=== PATIENT | female | born 1995 | race Caucasian/White ===

== ENCOUNTER 2016-08-29 22:37 | Outpatient (CLI) | payer MEDICAID ==
[~2016-08-29] VITALS: Ht 172.7 cm; Wt 125.7 kg
[~2016-08-29 22:37] MED LIST: NPH10OT RIGHT EAR
[2016-08-29 23:47] VITALS: BP 123/59; PULSE 88; RESP 18
[2016-08-30] MEDS ORDERED: AL HYDROX/MG HYDROX/SIMETH 30 ML CUP PO ONE (00:30)
[2016-08-30 00:39] LABS: ADD SCAN DIFF NO
[2016-08-30 00:41] LABS: BASOPHILS % 0.2 % (0.0-2.0); EOSINOPHILS % 0.3 % (0.0-7.0); HEMATOCRIT 32.4 % (37.0-47.0); LYMPHOCYTES # 1.1 10^3/ul (0.8-2.9); LYMPHOCYTES % 11.3 % (18.0-55.0); MEAN CORPUSCULAR HEMOGLOBIN 30.6 pg (29.0-33.0); MEAN PLATELET VOLUME 9.9 fl (7.4-10.4); MONOCYTE # 0.7 10^3/ul (0.3-0.9); MONOCYTES % 7.2 % (0.0-13.0); NEUTROPHIL # 7.9 10^3/ul (1.6-7.5); NEUTROPHILS % 80.4 % (30.0-74.0); PLATELET COUNT 211 10^3/UL (140-415); RED CELL DISTRIBUTION WIDTH 13.9 % (11.5-14.5); WHITE BLOOD COUNT 9.8 10^3/ul (4.8-10.8)
[2016-08-30 01:03] LABS: ALBUMIN 3.2 g/dl (3.3-4.9)
[2016-08-30 01:04] LABS: POTASSIUM 3.9 mmol/L (3.5-5.1)
[2016-08-30 01:05] LABS: ADD UMIC NO; URINE BILIRUBIN (Dip) NEGATIVE (NEGATIVE); URINE BLOOD (Dip) NEGATIVE (NEGATIVE); URINE COLOR YELLOW (YELLOW); URINE GLUCOSE (Dip) NEGATIVE (NEGATIVE); URINE KETONES (Dip) 40 (NEGATIVE); URINE LEUKOCYTE ESTERASE (Dip) NEGATIVE (NEGATIVE); URINE NITRITE (Dip) NEGATIVE (NEGATIVE); URINE TOTAL PROTEIN (Dip) NEGATIVE (NEGATIVE); URINE UROBILINOGEN (Dip) 0.2 E.U./dL (0.1-1.0)
[2016-08-30 01:06] LABS: BILIRUBIN,INDIRECT 0.2 mg/dl (0-1.1); BILIRUBIN,TOTAL 0.2 mg/dl (0.2-1.3); CREATININE 0.58 mg/dl (0.44-1.00)
[2016-08-30 01:07] LABS: ALBUMIN/GLOBULIN RATIO 0.96; CALCIUM 8.5 mg/dl (8.4-10.2); TOTAL PROTEIN 6.5 g/dl (6.1-8.1)
--- NOTE | 2016-08-30 01:23 | RADRPT ---
PROCEDURE: Limited OB ultrasound CLINICAL INDICATION: labor. TECHNIQUE: Sonographic evaluation to assess the cervical length was performed. Transabdominal and transvaginal imaging of the uterus was performed. COMPARISON: None. FINDINGS: The cervix is closed, measuring 4.3 cm in length. IMPRESSION: 1. Closed cervix measuring 4.3 cm. RPTAT: HTAR .Joesph Chowdhury MD, Date Time Electronically viewed and signed by .Joepsh Chowdhury MD, on 08/30/2016 01:23 .R/
--- NOTE | 2016-08-30 01:56 | TRIAGE ---
OB Triage Datetime Report Generated by CPN: 08/30/2016 01:56 Datetime: 08/30/2016 01:29 Stage of : OB Triage Labor Evaluation Frequency: 0 Monitor Mode: External Resting Tone [place]: Relaxed Datetime: 08/30/2016 01:19 Labor Evaluation Frequency: 0 Monitor Mode: External Pattern: Normal: <= 5 Contractions in 10 Minutes Resting Tone [place]: Relaxed Datetime: 08/30/2016 01:00 Stage of : OB Triage Datetime: 08/30/2016 00:15 Pain Assessment Pain Scale: 5 Pain Presence: Constant Pain Type: Dull Pain Location: Right Flank Datetime: 08/30/2016 00:02 Heart Rate FHR Baseline Rate: 145 Monitor Mode: External US Datetime: 08/29/2016 23:45 Stage of : OB Triage Monitor Mode: External Resting Tone [place]: Relaxed Monitor Mode: External US Comments: FHR 145 Datetime: 08/29/2016 23:25 Vaginal Exam Membrane Status: Intact Datetime: 08/29/2016 23:15 Time of Arrival: 08/29/2016 22:36 EGA: 25.1 Arrived By: Ambulatory Arrived From: Home Chief Complaint: c/o diarrhea x 2days aand emesis x 3 since 1900 today Movement: Present Contractions: Occasional Rupture of Membranes: Denies Vaginal Bleeding: None Vaginal Discharge: Denies Recent Sexual Intercouse: Denies Abdominal Trauma: Not Applicable Patient Complaints: Cramping; Nausea; Vomiting; Other Time Provider Notified: 08/29/2016 23:45 Provider Notified: Dr Albert Initial Plan: EFM, UA,CBC,CMP,CVL Datetime: 08/29/2016 22:54 Maternal Assessment Level of Consciousness: Fully Conscious DTR's/Clonus: DTRs 1+; No Clonus Headache: Denies Blurred Vision: No Nausea/Vomiting: Present RUQ Epigastric Pain: Present Facial Edema: None Labor Evaluation Frequency: placed Monitor Mode: External Resting Tone [place]: Relaxed Monitor Mode: External US Comments: FHR 140. Baby audibly active and difficult to monitor d/t GA and maternal obesity Pain Assessment Pain Scale: 3 Pain Presence: Intermittent Pain Type: Cramping Pain Location: Abdomen
--- NOTE | 2016-08-30 11:10 | PN ---
Date/Time of Note Date/Time of Note DATE: 08/30/16 TIME: 10:53 OB Subjective Subjective Subjective 25 Y.O primigravida came in with c/o nausea and vomitin g an dpelvic cramping pain which is intermittent level is 5/10 according to patient she had diarrhea few times 2days prior to this visit which is getting better and and started having nausea and vomiting denies any other subjective symptoms OB Objective Objective Objective EFM difficult to detect uterine contraction cervical length 4.3 all lab including wbc 9800 ELECTROLYTES WNL u/a neg CVA ? tender urine culture was sent patient comfortably sleeping after oral hydration OB Assessment/Plan Other Assessment: IUP 25W PELVIC PAIN RESOLVED Other plan: routine instructions given with increase intake of fluid discharge home, will be f/u in ob clinic MAXWELL MCCRAY MD Aug 30, 2016 11:05
== END 2016-08-30 01:55 | disposition home or self-care (01) ==
LOC: OBT 22:37 → L-D 22:38 → OBT 08-30 01:55
PROVIDERS: ATTEND Obstetrics & Gynecology
DX: O21.2 Late vomiting of pregnancy (principal); O26.892 Other specified pregnancy related conditions, second trimester; R10.9 Unspecified abdominal pain; Z3A.25 25 weeks gestation of pregnancy
CPT/HCPCS: 36415; 76817; 80053; 81003; 85025; Z7500; Z7610; G0463

== ENCOUNTER 2016-11-03 13:40 | Inpatient (IN) | payer MEDICAID ==
[~2016-11-03] VITALS: Ht 172.7 cm; Wt 128.0 kg
[2016-11-03 14:01] VITALS: Ht 172.7 cm; Wt 128.0 kg
[2016-11-03 14:03] VITALS: BP 106/58; PULSE 98; RESP 18
[2016-11-03 15:28] LABS: ADD UMIC YES; URINE BILIRUBIN (Dip) NEGATIVE (NEGATIVE); URINE BLOOD (Dip) NEGATIVE (NEGATIVE); URINE COLOR LT. YELLOW (YELLOW); URINE GLUCOSE (Dip) NEGATIVE (NEGATIVE); URINE KETONES (Dip) NEGATIVE (NEGATIVE); URINE LEUKOCYTE ESTERASE (Dip) 2+ (NEGATIVE); URINE NITRITE (Dip) NEGATIVE (NEGATIVE); URINE TOTAL PROTEIN (Dip) NEGATIVE (NEGATIVE); URINE UROBILINOGEN (Dip) 1.0 E.U./dL (0.1-1.0)
[2016-11-03 15:34] LABS: BACTERIA,URINE MODERATE
--- NOTE | 2016-11-03 17:01 | RADRPT ---
PROCEDURE: US OB. CLINICAL INDICATION: Leaking fluid TECHNIQUE: Transabdominal views of the pelvis are available for review. COMPARISON: None. FINDINGS: There is a single intrauterine gestation in a vertex position. The heart rate is present at 129 bpm. The placenta is posterior. There is no evidence of placenta previa or a placental abruption. The TANI measures 16.3 cm. RPTAT: AA IMPRESSION: Normal TANI. Cephalic presentation. Physician Genie Date Time Electronically viewed and signed by Physician Genie on 11/03/2016 17:01 /
[2016-11-03] MEDS ORDERED: ACETAMINOPHEN 325 MG TAB PO PRN (18:00)
[2016-11-03] MEDS ORDERED: ONDANSETRON 4 MG INJ IV PRN (18:00)
--- NOTE | 2016-11-03 18:13 | HP ---
Date/Time of Note Date/Time of Note DATE: 11/03/16 TIME: 18:05 OB - History Hx of Present Free Text/Dictation 20 y,o primigravida c/o leaking fluid at 34.4 weeks ROM plus neg cervix closed long no fluid u/a wbc more than 50 rbc 5-1o TANI 16.3 Chief Complaint: leaking fluid Estimated Due Date: Dec 11, 2016 : 1 Para: 0 Spontaneous : 0 Therapeutic : 0 Care: Good Care Ultrasounds: Normal mid trimester US Obstetrical Complications: None Past Family/Social History * Past Medical, Surgical, Family and Obstetric Histories reviewed from chart. OB Admission Exam Vital Signs Vital Signs Vital Signs Date Time Temp Pulse Resp B/P Pulse Ox O2 Delivery O2 Flow Rate FiO2 11/03/16 14:03 98.5 98 18 106/58 Room Air Physical Exam HEENT: WNL Heart: Rhythm Normal Lungs: Clear, Equal Abdomen: WNL Extremities: Normal Reflexes: Normal Cervical Dilatation: None Effacement: 0% Station: -3 Membranes: Intact Amniotic Fluid: Unevaluable Heart Rate: 140's Date/Time Contractions Began: CVA LT>Rt tenderness OB Assessment/Plan Other Assessment: IUP 34w4d UTI Other plan: IV HYDRATION with Rocephin 1gm daily urine culture was sent MAXWELL MCCRAY MD Nov 03, 2016 18:13
[2016-11-03] MEDS: SOD CHLORIDE 0.9% 1,000 ML IV SCH (19:05)
[2016-11-03] MEDS: CEFTRIAXONE 1 GM/50 ML (PMX) 50 ML IV SCH (19:07)
[2016-11-03 19:27] LABS: ADD SCAN DIFF NO
[2016-11-03 19:28] LABS: BASOPHILS % 0.3 % (0.0-2.0); EOSINOPHILS # 0.1 10^3/ul (0.0-0.5); EOSINOPHILS % 0.5 % (0.0-7.0); HEMATOCRIT 33.8 % (37.0-47.0); HEMOGLOBIN 11.5 g/dl (12.0-16.0); LYMPHOCYTES # 2.3 10^3/ul (0.8-2.9); LYMPHOCYTES % 21.7 % (18.0-55.0); MEAN CORPUSCULAR HEMOGLOBIN 30.3 pg (29.0-33.0); MEAN CORPUSCULAR VOLUME 88.9 fl (72.0-104.0); MEAN PLATELET VOLUME 10.1 fl (7.4-10.4); MONOCYTE # 0.7 10^3/ul (0.3-0.9); MONOCYTES % 6.1 % (0.0-13.0); NEUTROPHIL # 7.7 10^3/ul (1.6-7.5); NEUTROPHILS % 70.9 % (30.0-74.0); PLATELET COUNT 249 10^3/UL (140-415); RED CELL DISTRIBUTION WIDTH 13.6 % (11.5-14.5); WHITE BLOOD COUNT 10.8 10^3/ul (4.8-10.8)
[2016-11-04] MEDS: SOD CHLORIDE 0.9% 1,000 ML IV SCH ×3 (02:45→17:25)
[2016-11-04] MEDS: SENNA TAB PO SCH (08:55)
[2016-11-04] MEDS: MULTIVIT/MIN/FOLATE/IRON/PREN TAB PO SCH (08:55)
[2016-11-04] MEDS: CEFTRIAXONE 1 GM/50 ML (PMX) 50 ML IV SCH (17:25)
--- NOTE | 2016-11-04 22:48 | PN ---
Date/Time of Note Date/Time of Note DATE: 11/04/16 TIME: 22:43 OB Subjective Subjective Subjective no subjective symptoms OB Objective Objective Objective no uterine contra ctions 24hr unrine growth neg CVA mod tenderness on LT vss afebrile OB Assessment/Plan Other Assessment: IUP 34w5d acute pyelonephritis Other plan: d/s home tomorrow after 3rd dose of rocephin MAXWELL MCCRAY MD Nov 04, 2016 22:48
[2016-11-05] MEDS: SOD CHLORIDE 0.9% 1,000 ML IV SCH ×2 (01:41→08:57)
[2016-11-05] MEDS: MULTIVIT/MIN/FOLATE/IRON/PREN TAB PO SCH (08:57)
[2016-11-05] MEDS: SENNA TAB PO SCH (08:57)
--- NOTE | 2016-11-05 16:40 | DS ---
Date/Time of Note Date/Time of Note DATE: 11/05/16 TIME: 16:37 Obstetrical Discharge Record Final Diagnosis Final Diagnosis: not delivered Other Final Diagnosis UTI IUP 34w6d Complications Other (acute cystitis r/o VASCULAR RADIOLOGIST) Augmentation: No Induction: No Condition on Discharge Physical Assessment Last Vitals: vss afebrile CVA neg for tenderness urine culture final no growth Voiding: Yes Breast: Soft, non-tender Abdomen and Incision: cva neg Calf Tenderness: No Patient Condition: Stable MAXWELL MCCRAY MD Nov 05, 2016 16:40
--- NOTE | 2016-11-05 16:46 | PD.PPDC ---
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
[2016-11-05] MEDS: CEFTRIAXONE 1 GM/50 ML (PMX) 50 ML IV SCH (17:31)
== END 2016-11-05 18:54 | disposition home or self-care (01) | DRG 781 ==
LOC: OBT 13:40 → L-D 13:41 → OBT 17:40 → OBG 17:40
PROVIDERS: ADMIT Obstetrics & Gynecology; ATTEND Obstetrics & Gynecology
DX: O23.03 Infections of kidney in pregnancy, third trimester (principal); Z3A.34 34 weeks gestation of pregnancy; N10 Acute pyelonephritis
CPT/HCPCS: 76815; 81001; 84112; 85025; 87086; G0463; J0696; J7030

== ENCOUNTER 2016-11-28 14:56 | Outpatient (CLI) | payer MEDICAID ==
[~2016-11-28] VITALS: Ht 172.7 cm; Wt 132.4 kg
[2016-11-28] MEDS ORDERED: ANTIBIOT (15:39)
[2016-11-28] MEDS ORDERED: PRENAT PO (15:39)
[2016-11-28 15:41] VITALS: BP 118/64; PULSE 20; RESP 22
[2016-11-28 16:33] LABS: ADD SCAN DIFF NO
[2016-11-28 16:35] LABS: BASOPHILS % 0.2 % (0.0-2.0); EOSINOPHILS % 0.4 % (0.0-7.0); HEMATOCRIT 35.7 % (37.0-47.0); HEMOGLOBIN 12.2 g/dl (12.0-16.0); LYMPHOCYTES # 1.9 10^3/ul (0.8-2.9); LYMPHOCYTES % 17.3 % (15.0-51.0); MEAN CORPUSCULAR HEMOGLOBIN 29.8 pg (29.0-33.0); MEAN CORPUSCULAR HGB CONC 34.2 g/dl (32.0-37.0); MEAN CORPUSCULAR VOLUME 87.3 fl (82.0-101.0); MEAN PLATELET VOLUME 9.8 fl (7.4-10.4); MONOCYTE # 0.8 10^3/ul (0.3-0.9); MONOCYTES % 6.8 % (0.0-11.0); NEUTROPHIL # 8.2 10^3/ul (1.6-7.5); NEUTROPHILS % 74.8 % (39.0-77.0); PLATELET COUNT 266 10^3/UL (140-415); RED BLOOD COUNT 4.09 10^6/ul (4.20-5.40); RED CELL DISTRIBUTION WIDTH 13.7 % (11.5-14.5)
[2016-11-28 16:39] LABS: ADD UMIC YES; UR ASCORBIC ACID 40 mg/dL (NEGATIVE); UR BACTERIA FEW /HPF (NONE SEEN); UR BILIRUBIN (Dip) NEGATIVE (NEGATIVE); UR BLOOD (Dip) NEGATIVE (NEGATIVE); UR CLARITY SLIGHTLY CLOUDY (CLEAR); UR COLOR YELLOW (YELLOW); UR GLUCOSE (Dip) NEGATIVE (NEGATIVE); UR KETONES (Dip) NEGATIVE (NEGATIVE); UR LEUKOCYTE ESTERASE (Dip) TRACE Leu/ul (NEGATIVE); UR MUCUS MODERATE /HPF (NONE SEEN); UR NITRITE (Dip) NEGATIVE (NEGATIVE); UR RBC 12 /HPF (0-5); UR SPECIFIC GRAVITY (Dip) 1.026 (1.003-1.030); UR SQUAMOUS EPITHELIAL CELL FEW /HPF (FEW); UR TOTAL PROTEIN (Dip) 2+ mg/dl (NEGATIVE); UR UROBILINOGEN (Dip) NEGATIVE (NEGATIVE)
--- NOTE | 2016-11-28 16:43 | RADRPT ---
PROCEDURE: US OB. CLINICAL INDICATION: Size and dates TECHNIQUE: Multiple sonographic images of the pelvis and gravid uterus were obtained. The images were reviewed on a PACS workstation. COMPARISON: 11/03/2016 FINDINGS: There is a single viable intrauterine gestation. Cardiac activity is present with 134 beats per min unga. There is a vertex presentation. The placenta is fundal. There is no evidence for an abruption or placenta previa. There is a normal amount of amniotic fluid with an TANI = 15.4 cm. Measurements were made in order to determine age. The results are as follows: BPD =9.3 cm HC =32.7 cm AC =34.1 cm FL =7.4 cm Estimated gestational age of approximately 37 weeks and 4 days based on ultrasound measurements. Clinical age: 38 weeks and 1 day. The estimated date of delivery is 12/15/2016, based on ultrasound measurements. The EFW = 3303 g, 54%, based on LMP age. RPTAT: AA IMPRESSION: Single viable intrauterine gestation of approximately 37 weeks and 4 days based on ultrasound measu rements. .Jaspal Solorio MD, Date Time Electronically viewed and signed by .Jaspal Solorio MD, on 11/28/2016 16:43 .S/
--- NOTE | 2016-11-28 16:44 | RADRPT ---
PROCEDURE: US OB biophysical profile. CLINICAL INDICATION: decreased movements TECHNIQUE: Multiple sonographic images of the pelvis were obtained. The images were reviewed on a PACS workstation. COMPARISON: 11/03/16 FINDINGS: There is a single viable intrauterine gestation. Cardiac activity is present with 142 beats per min jimmy. There is a vertex presentation. The placenta is fundal. There is no evidence for an abruption or placenta previa. There is a normal amount of amniotic fluid with an TANI = 15.4 cm. Biophysical profile: movement 2/2 tone 2/2. breathing 2/2 TANI 2/2 Total 01/02 RPTAT: AA . IMPRESSION: Normal biophysical profile. . .Jaspal Solorio MD, MD Date Time Electronically viewed and signed by .Jaspal Solorio MD, MD on 11/28/2016 16:43 .S/
[2016-11-28 16:53] LABS: ALBUMIN 3.8 g/dl (3.3-4.9); ALBUMIN/GLOBULIN RATIO 1.18; BILIRUBIN,INDIRECT 0.1 mg/dl (0-1.1); BILIRUBIN,TOTAL 0.1 mg/dl (0.2-1.3); CALCIUM 9.5 mg/dl (8.4-10.2); CREATININE 0.62 mg/dl (0.44-1.00)
--- NOTE | 2016-11-28 17:51 | CONS ---
Date/Time of Note Date/Time of Note DATE: 11/28/16 TIME: 17:38 Consultation Date/Type/Reason Admit Date/Time November 28, 2016 OB triage consult Reason for Consultation This patient is a 1 para 0 with estimated date of confinement of November which makes her 38 weeks and 1 day today She came to OB triage clinic complaining of headache and diarrhea. 12 times in the past 24 hours. She has a history of urinary tract infection for which she has been taking antibiotic for about a month She also vomited once this morning On general examination she is a well-developed well-nourished lady at term ,her general vital signs are normal with blood pressure 118/64 , pulse rate 101, respiration 20, temperature 98.2, and oxygen saturation of 97 % on room temperature . heart tone was 140/min she does have occasional contractions heart tone appears to be normal with good variability, occasional acceleration no decelerations. Laboratory Tests Test 11/28/16 15:00 11/28/16 16:15 Urine Color YELLOW Urine Clarity SLIGHTLY CLOUDY Urine pH 5.0 Urine Specific [place] 1.026 Urine Ketones NEGATIVEmg/dL Urine Nitrite NEGATIVEmg/dL Urine Bilirubin NEGATIVEmg/dL Urine Urobilinogen NEGATIVEmg/dL Urine Leukocyte Esterase TRACELeu/ul Urine Microscopic RBC 12/HPF Urine Microscopic WBC 6/HPF Urine Squamous Epithelial Cells FEW/HPF Urine Bacteria FEW/HPF Urine Mucus MODERATE/HPF Urine Hemoglobin NEGATIVEmg/dL Urine Glucose NEGATIVEmg/dL Urine Total Protein 2+mg/dl White Blood Count 11.010^3/ul Red Blood Count 4.0910^6/ul Hemoglobin 12.2g/dl Hematocrit 35.7% Mean Corpuscular Volume 87.3fl Mean Corpuscular Hemoglobin 29.8pg Mean Corpuscular Hemoglobin Concent 34.2g/dl Red Cell Distribution Width 13.7% Platelet Count 20334^3/UL Mean Platelet Volume 9.8fl Neutrophils % 74.8% Lymphocytes % 17.3% Monocytes % 6.8% Eosinophils % 0.4% Basophils % 0.2% Nucleated Red Blood Cells % 0.0/100WBC Neutrophils # 8.210^3/ul Lymphocytes # 1.910^3/ul Monocytes # 0.810^3/ul Eosinophils # 0.010^3/ul Basophils # 0.010^3/ul Nucleated Red Blood Cells # 0.010^3/ul Sodium Level 141mmol/L Potassium Level 4.0mmol/L Chloride Level 103mmol/L Carbon Dioxide Level 23mmol/L Anion Gap 19 Blood Urea Nitrogen 11mg/dl Creatinine 0.62mg/dl Glucose Level 90mg/dl Calcium Level 9.5mg/dl Total Bilirubin 0.1mg/dl Direct Bilirubin 0.00mg/dl Indirect Bilirubin 0.1mg/dl Aspartate Amino Transf (AST/SGOT) 40IU/L Alanine Aminotransferase (ALT/SGPT) 103IU/L Alkaline Phosphatase 153IU/L Total Protein 7.0g/dl Albumin 3.8g/dl Globulin 3.20g/dl Albumin/Globulin Ratio 1.18 Constitutional: other (She is afebrile), No chills, No diaphoresis, No disoriented, No febrile, No improved, No no complaints, No poor po, No requiring IVF, No requiring O2 Eyes: No discharge, No no complaints, No other, No pain, No redness, No visual change ENT: No bleeding, No congestion, No discharge, No dysphagia, No no complaints, No other, No pain, No sore throat Respiratory: other (No overall), No cough, No no complaints, No pain, No pleuritic pain, No shortness of breath, No sputum, No wheezing Cardiovascular: No chest pain, No edema, No lightheadedness, No no complaints, No orthopenea, No other, No palpitations, No paroxysmal nocturnal dyspnea Gastrointestinal: other, No blood, No constipation, No decreased appetite, No diarrhea, No flatus, No nausea, No no complaints, No pain, No passing stool, No vomiting Genitourinary: other (On pelvic exam the cervix was closed), No bleeding, No discharge, No dysuria, No flank pain, No hematuria, No no complaints Musculoskeletal: No back pain, No bone/joint pain, No neck pain, No no complaints, No other, No restricted range of motion, No swelling Skin: No bruising, No erythema, No laceration, No no complaints, No other, No pruritis, No rash, No skin lesions Neurologic: No confusion, No dizziness, No focal-weakness, No headache, No no complaints, No other, No seizure, No syncope Endocrine: other (Knee-jerk reflex was normal) Additional Comments On reviewing her lab studies, her urine test showed 2+ protein ,6 WBC and 12 RBCs ,the rest of the tests were negative on this urinalysis her CBC was within normal limits with slight anemia with RBC of 7.09, WBC was 11 ,CMP study was basically normal with SGPT of 103 the rest including electrolytes and liver panel were within normal limit On ultrasound study the report is single viable intrauterine gestation ,vertex presentation, heartbeat of 142 bpm, placenta was fundal and amniotic fluid index was reported 15.4 cm the measurement of the uterus was 37 weeks and 4 days comparing with 38 weeks and 1 day which is normal her estimated weight was 3o33 g which is 54 percentile based on LMP Disposition. With these fairly normal finding patient was informed that most likely it was the effect of the long-term antibiotic causing this diarrhea. Currently she is not taking the antibiotic. Imodium given She is advised to see her physician for repeat urinalysis culture sensitivity and if necessary change her antibiotic End of dictation Social History Smoking Status: Never smoker Exam/Review of Systems Vital Signs Vitals Vital Signs Date Time Temp Pulse Resp B/P Pulse Ox O2 Delivery O2 Flow Rate FiO2 11/28/16 15:41 98.2 20 22 118/64 97 Room Air Results Result Diagram: 11/28/16 1615 11/28/16 1615 Results 24 hrs Laboratory Tests Test 11/28/16 15:00 11/28/16 16:15 Urine Color YELLOW Urine Clarity SLIGHTLY CLOUDY A Urine pH 5.0 Urine Specific [place] 1.026 Urine Ketones NEGATIVE Urine Nitrite NEGATIVE Urine Bilirubin NEGATIVE Urine Urobilinogen NEGATIVE Urine Leukocyte Esterase TRACE A Urine Microscopic RBC 12 H Urine Microscopic WBC 6 H Urine Squamous Epithelial Cells FEW Urine Bacteria FEW A Urine Mucus MODERATE Urine Hemoglobin NEGATIVE Urine Glucose NEGATIVE Urine Total Protein 2+ H White Blood Count 11.0 H Red Blood Count 4.09 L Hemoglobin 12.2 Hematocrit 35.7 L Mean Corpuscular Volume 87.3 Mean Corpuscular Hemoglobin 29.8 Mean Corpuscular Hemoglobin Concent 34.2 Red Cell Distribution Width 13.7 Platelet Count 266 Mean Platelet Volume 9.8 Neutrophils % 74.8 Lymphocytes % 17.3 Monocytes % 6.8 Eosinophils % 0.4 Basophils % 0.2 Nucleated Red Blood Cells % 0.0 Neutrophils # 8.2 H Lymphocytes # 1.9 Monocytes # 0.8 Eosinophils # 0.0 Basophils # 0.0 Nucleated Red Blood Cells # 0.0 Sodium Level 141 Potassium Level 4.0 Chloride Level 103 Carbon Dioxide Level 23 Anion Gap 19 H Blood Urea Nitrogen 11 Creatinine 0.62 Glucose Level 90 Calcium Level 9.5 Total Bilirubin 0.1 L Direct Bilirubin 0.00 Indirect Bilirubin 0.1 Aspartate Amino Transf (AST/SGOT) 40 Alanine Aminotransferase (ALT/SGPT) 103 H Alkaline Phosphatase 153 H Total Protein 7.0 Albumin 3.8 Globulin 3.20 Albumin/Globulin Ratio 1.18 MIKI TIMMONS MD Nov 28, 2016 17:51
--- NOTE | 2016-11-28 17:51 | TRIAGE ---
OB Triage Datetime Report Generated by CPN: 11/28/2016 17:51 Datetime: 11/28/2016 17:20 Labor Evaluation Frequency: NONE Monitor Mode: External Quality: Mild Pattern: Normal: <= 5 Contractions in 10 Minutes Resting Tone [employer]: Relaxed Heart Rate FHR Baseline Rate: 135 FHR Baseline Changes: No Baseline Change Variability: Moderate 6-25 bpm Accelerations: 15X15 Decelerations: None Datetime: 11/28/2016 17:00 Labor Evaluation Frequency: NONE Monitor Mode: External Pattern: Normal: <= 5 Contractions in 10 Minutes Resting Tone [employer]: Relaxed Heart Rate FHR Baseline Rate: 140 FHR Baseline Changes: No Baseline Change Variability: Moderate 6-25 bpm Accelerations: 15X15 Decelerations: None Datetime: 11/28/2016 16:00 Labor Evaluation Frequency: NONE Monitor Mode: External Pattern: Normal: <= 5 Contractions in 10 Minutes Resting Tone [employer]: Relaxed Heart Rate FHR Baseline Rate: 140 Monitor Mode: External US FHR Baseline Changes: No Baseline Change Variability: Moderate 6-25 bpm Accelerations: 15X15 Decelerations: None Category: Category I Datetime: 11/28/2016 15:13 Stage of : OB Triage Assessment Type: Triage Maternal Assessment Level of Consciousness: Fully Conscious Headache: Denies Blurred Vision: No Respiratory Effort: Unlabored; Regular Rhythm; Equal Expansion Breath Sounds, Left: Clear and Equal Breath Sounds, Right: Clear and Equal Nausea/Vomiting: Denies RUQ Epigastric Pain: Denies Lower Extremities Edema: Left Lower Extremity (Annotations: PT HAS PROSTHETIC RIGHT LEG) Degree: None Upper Extremities Edema: None Degree: None Facial Edema: None Temperature Route: Oral Fall Risk Assessment History of Falling: (0) No Secondary Diagnosis: (0) No Ambulatory Aid: (0) Bedrest/Nurse Assist IV Therapy: (0) No Gait: (0) Normal/Bedrest/Immobile Mental Status: (0) Oriented to Own Ability Fall Score: 0 Fall Risk Score Definition: No Risk: No action required Pain Assessment Pain Scale: 7 Pain Presence: Constant Pain Type: Pressure Pain Location: Head Datetime: 11/05/2016 18:19 Labor Evaluation Frequency: 0 Monitor Mode: External Duration (sec)2399: 0 Pattern: Normal: <= 5 Contractions in 10 Minutes Resting Tone [employer]: Relaxed Datetime: 11/05/2016 18:01 Labor Evaluation Frequency: 0 Monitor Mode: External Duration (sec)2399: 0 Pattern: Normal: <= 5 Contractions in 10 Minutes Datetime: 11/05/2016 16:37 Time of Arrival: 11/28/2016 14:45 EGA: 38.1 Arrived By: Ambulatory Arrived From: Home Chief Complaint: HEADACHE, STARTING THIS AM, OF 710, TEMPORAL; DIARRHEA FROM LAST NIGHT, 12 TIMES , CLEAR FLUID, LAST TIME APPROX 1415. VOMITING x1 THIS AM, AFTER BREAKFAST. Movement: Decreased Contractions: Denies/Absent Rupture of Membranes: Denies Vaginal Bleeding: None Vaginal Discharge: Denies Recent Sexual Intercouse: Denies Abdominal Trauma: Not Applicable Patient Complaints: Other Time Provider Notified: 11/28/2016 15:57 Provider Notified: DR. TIMMONS Initial Plan: EFM x2, CBC, CMP, U/A, EFW, BPP Datetime: 11/05/2016 15:57 Labor Evaluation Frequency: 0 Monitor Mode: External Duration (sec)2399: 0 Pattern: Normal: <= 5 Contractions in 10 Minutes Resting Tone [employer]: Relaxed Contraction Comments: DENIES FEELING ANY UC'S Datetime: 11/05/2016 15:00 Labor Evaluation Frequency: 0 Monitor Mode: External Duration (sec)2399: 0 Pattern: Normal: <= 5 Contractions in 10 Minutes Resting Tone [employer]: Relaxed Datetime: 11/05/2016 13:58 Labor Evaluation Frequency: ONE NOTED IN ONE HOUR Monitor Mode: External Duration (sec)2399: 100 Pattern: Normal: <= 5 Contractions in 10 Minutes Contraction Comments: DENIES FEELING ANY UC'S. Datetime: 11/05/2016 11:31 Labor Evaluation Frequency: 0 Monitor Mode: External Duration (sec)2399: 0 Pattern: Normal: <= 5 Contractions in 10 Minutes Contraction Comments: DENIES FEELING ANY UC'S Datetime: 11/05/2016 10:56 Labor Evaluation Frequency: ONE NOTED IN ONE HOUR Monitor Mode: External Duration (sec)2399: 100 Pattern: Normal: <= 5 Contractions in 10 Minutes Contraction Comments: PT STANDING AT BEDSIDE WITH FOB. DENIES FEELING JERROD UC'S Datetime: 11/05/2016 10:16 Heart Rate FHR Baseline Rate: 130 Monitor Mode: External US FHR Baseline Changes: No Baseline Change Variability: Moderate 6-25 bpm Accelerations: 15X15 Decelerations: Variable Category: Category I Datetime: 11/05/2016 08:34 Pain Assessment Pain Scale: 2 Pain Presence: Intermittent Pain Location: Left Flank Pain Assessment Comments: STATES ONLY WHEN SHE'S LYING DOWN IN BED Datetime: 11/05/2016 08:00 Labor Evaluation Frequency: 0 Monitor Mode: External Duration (sec)2399: 0 Pattern: Normal: <= 5 Contractions in 10 Minutes Datetime: 11/05/2016 07:47 Assessment Type: Ongoing Assessment Maternal Assessment Level of Consciousness: Fully Conscious Headache: Denies Blurred Vision: No Respiratory Effort: Unlabored; Regular Rhythm; Equal Expansion Nausea/Vomiting: Denies RUQ Epigastric Pain: Denies Lower Extremities Edema: None Upper Extremities Edema: None Facial Edema: None Fall Risk Assessment History of Falling: (0) No Secondary Diagnosis: (0) No Ambulatory Aid: (0) Bedrest/Nurse Assist IV Therapy: (20) Yes Gait: (0) Normal/Bedrest/Immobile Mental Status: (0) Oriented to Own Ability Fall Score: 20 Fall Risk Score Definition: No Risk: No action required Datetime: 11/05/2016 07:00 Labor Evaluation Frequency: 0 Monitor Mode: External Datetime: 11/05/2016 06:00 Labor Evaluation Frequency: 0 Monitor Mode: External Datetime: 11/05/2016 05:00 Labor Evaluation Frequency: 0 Monitor Mode: External Datetime: 11/05/2016 04:45 Temperature Route: Oral Pain Assessment Pain Scale: 0 Datetime: 11/05/2016 04:00 Labor Evaluation Frequency: 0 Monitor Mode: External Datetime: 11/05/2016 03:00 Labor Evaluation Frequency: 0 Monitor Mode: External Datetime: 11/05/2016 02:00 Labor Evaluation Frequency: 0 Monitor Mode: External Datetime: 11/05/2016 01:00 Labor Evaluation Frequency: 0 Monitor Mode: External Datetime: 11/05/2016 00:00 Labor Evaluation Frequency: 0 Monitor Mode: External Datetime: 11/04/2016 23:00 Labor Evaluation Frequency: 0 Monitor Mode: External Heart Rate FHR Baseline Rate: 135 Monitor Mode: External US FHR Baseline Changes: No Baseline Change Variability: Moderate 6-25 bpm Accelerations: 15X15 Decelerations: None Category: Category I Datetime: 11/04/2016 22:00 Labor Evaluation Frequency: 0 Monitor Mode: External Datetime: 11/04/2016 21:42 Comments: NST STARTED Datetime: 11/04/2016 21:00 Labor Evaluation Frequency: 0 Monitor Mode: External Datetime: 11/04/2016 20:00 Labor Evaluation Frequency: 0 Monitor Mode: External Datetime: 11/04/2016 19:55 Assessment Type: Ongoing Assessment Maternal Assessment Level of Consciousness: Fully Conscious Headache: Denies Blurred Vision: No Respiratory Effort: Unlabored; Regular Rhythm; Equal Expansion Nausea/Vomiting: Denies RUQ Epigastric Pain: Denies Lower Extremities Edema: None Upper Extremities Edema: None Facial Edema: None Temperature Route: Oral Fall Risk Assessment History of Falling: (0) No Secondary Diagnosis: (0) No Ambulatory Aid: (0) Bedrest/Nurse Assist IV Therapy: (20) Yes Gait: (0) Normal/Bedrest/Immobile Mental Status: (0) Oriented to Own Ability Fall Score: 20 Fall Risk Score Definition: No Risk: No action required Pain Assessment Pain Scale: 0 Datetime: 11/04/2016 17:24 Pain Presence: None/Denies Datetime: 11/04/2016 17:00 Stage of : Antepartum Maternal Assessment Level of Consciousness: Fully Conscious Headache: Denies Nausea/Vomiting: Denies RUQ Epigastric Pain: Denies Labor Evaluation Frequency: 0/hr Monitor Mode: External Pain Assessment Pain Scale: 0 Pain Presence: None/Denies Vaginal Bleeding: None Datetime: 11/04/2016 16:00 Stage of : Antepartum Maternal Assessment Level of Consciousness: Fully Conscious Headache: Denies Nausea/Vomiting: Denies RUQ Epigastric Pain: Denies Labor Evaluation Frequency: 0/hr Monitor Mode: External Pain Assessment Pain Scale: 0 Pain Presence: None/Denies Vaginal Bleeding: None Datetime: 11/04/2016 15:50 Stage of : Antepartum Maternal Assessment Level of Consciousness: Fully Conscious Headache: Denies Nausea/Vomiting: Denies RUQ Epigastric Pain: Denies Temperature Route: Oral Pain Assessment Pain Scale: 0 Pain Presence: None/Denies Membrane Status: Intact (Annotations: no further c/o leaking ) Vaginal Bleeding: None Datetime: 11/04/2016 15:00 Stage of : Antepartum Maternal Assessment Level of Consciousness: Fully Conscious Headache: Denies Nausea/Vomiting: Denies RUQ Epigastric Pain: Denies Labor Evaluation Frequency: 0/hr Monitor Mode: External Pain Assessment Pain Scale: 0 Pain Presence: None/Denies Vaginal Bleeding: None Datetime: 11/04/2016 13:00 Stage of : Antepartum Maternal Assessment Level of Consciousness: Fully Conscious Headache: Denies Nausea/Vomiting: Denies RUQ Epigastric Pain: Denies Labor Evaluation Frequency: 0/hr Monitor Mode: External Pain Assessment Pain Scale: 0 Pain Presence: None/Denies Vaginal Bleeding: None Datetime: 11/04/2016 12:25 Stage of : Antepartum Maternal Assessment Level of Consciousness: Fully Conscious Headache: Denies Blurred Vision: No Nausea/Vomiting: Denies RUQ Epigastric Pain: Denies Labor Evaluation Frequency: 0/hr Monitor Mode: External Resting Tone [employer]: Relaxed Heart Rate FHR Baseline Rate: 135 Monitor Mode: External US Variability: Moderate 6-25 bpm Accelerations: 15X15 Decelerations: None Category: Category I Comments: nst done Pain Assessment Pain Scale: 0 Pain Presence: None/Denies Vaginal Bleeding: None Datetime: 11/04/2016 11:42 Monitor Mode: Palpation Resting Tone [employer]: Relaxed Pain Presence: None/Denies Datetime: 11/04/2016 11:00 Stage of : Antepartum Maternal Assessment Level of Consciousness: Fully Conscious Headache: Denies Nausea/Vomiting: Denies RUQ Epigastric Pain: Denies Labor Evaluation Frequency: 0/hr Monitor Mode: External Resting Tone [employer]: Relaxed Pain Assessment Pain Scale: 0 Pain Presence: None/Denies Vaginal Bleeding: None Datetime: 11/04/2016 09:57 Stage of : Antepartum Maternal Assessment Level of Consciousness: Fully Conscious Headache: Denies Nausea/Vomiting: Denies Labor Evaluation Frequency: 0/hr Monitor Mode: External Resting Tone [employer]: Relaxed Pain Assessment Pain Scale: 0 Pain Presence: None/Denies Vaginal Bleeding: None Datetime: 11/04/2016 09:02 Stage of : Antepartum Maternal Assessment Level of Consciousness: Fully Conscious Headache: Denies Nausea/Vomiting: Denies Labor Evaluation Frequency: 0/hr Monitor Mode: External Pain Assessment Pain Scale: 0 Pain Presence: None/Denies Vaginal Bleeding: None Datetime: 11/04/2016 08:57 Stage of : Antepartum Datetime: 11/04/2016 07:57 Stage of : Antepartum Maternal Assessment Level of Consciousness: Fully Conscious Headache: Denies Nausea/Vomiting: Denies RUQ Epigastric Pain: Denies Temperature Route: Oral Labor Evaluation Frequency: 0/hr Monitor Mode: External Resting Tone [employer]: Relaxed Comments: nst q shift 34.5. pt. acknowledges movement Pain Assessment Pain Scale: 0 (Annotations: but when palpate back positive for cva tenderness) Pain Presence: None/Denies Pain Assessment Comments: cva tenderness upon palpation Membrane Status: Intact (Annotations: pt. thought possible fluids leaking when came to hospital af ter clinic visit that day. pt. pt. states that there has been no further leaking. rom + test is nega tive and ariane wnl. ) Vaginal Bleeding: None ROM Test Kit: Negative Datetime: 11/04/2016 07:00 Labor Evaluation Frequency: 0 Monitor Mode: External Datetime: 11/04/2016 06:00 Labor Evaluation Frequency: 0 Monitor Mode: External Datetime: 11/04/2016 05:00 Labor Evaluation Frequency: 0 Monitor Mode: External Datetime: 11/04/2016 04:00 Labor Evaluation Frequency: 0 Monitor Mode: External Datetime: 11/04/2016 03:00 Labor Evaluation Frequency: 0 Monitor Mode: External Datetime: 11/04/2016 02:48 Temperature Route: Oral Pain Assessment Pain Scale: 0 Datetime: 11/04/2016 02:00 Labor Evaluation Frequency: 0 Monitor Mode: External Datetime: 11/04/2016 01:36 Comments: ZERO ADJ. Datetime: 11/04/2016 01:00 Labor Evaluation Frequency: 0 Monitor Mode: External Datetime: 11/04/2016 00:00 Labor Evaluation Frequency: 0 Monitor Mode: External Datetime: 11/03/2016 23:55 Temperature Route: Oral Pain Assessment Pain Scale: 0 Datetime: 11/03/2016 23:00 Labor Evaluation Frequency: 0 Monitor Mode: External Datetime: 11/03/2016 22:00 Labor Evaluation Frequency: 0 Monitor Mode: External Datetime: 11/03/2016 21:00 Labor Evaluation Frequency: 0 Monitor Mode: External Datetime: 11/03/2016 20:25 Heart Rate FHR Baseline Rate: 130 Monitor Mode: External US Comments: FHR Datetime: 11/03/2016 20:00 Labor Evaluation Frequency: 0 Monitor Mode: External Datetime: 11/03/2016 19:30 Assessment Type: Admission Assessment Vaginal Bleeding: None Maternal Assessment Level of Consciousness: Fully Conscious DTR's/Clonus: DTRs 2+; No Clonus Headache: Denies Blurred Vision: No Respiratory Effort: Unlabored; Regular Rhythm; Equal Expansion Breath Sounds, Left: Clear and Equal Breath Sounds, Right: Clear and Equal Nausea/Vomiting: Denies RUQ Epigastric Pain: Denies Lower Extremities Edema: Right Lower Extremity Degree: 1+ Upper Extremities Edema: None Degree: None Facial Edema: None Fall Risk Assessment History of Falling: (0) No Secondary Diagnosis: (0) No Ambulatory Aid: (0) Bedrest/Nurse Assist IV Therapy: (0) No Gait: (0) Normal/Bedrest/Immobile Mental Status: (0) Oriented to Own Ability Fall Score: 0 Fall Risk Score Definition: No Risk: No action required Labor Evaluation Frequency: None Pain Assessment Pain Scale: 0 Pain Presence: None/Denies Pain Type: N/A Pain Goal: 3 Membrane Status: Intact Datetime: 11/03/2016 19:28 Time of Arrival: 11/03/2016 18:45 EGA: 34.4 Arrived By: Wheelchair Arrived From: Other Unit in Hospital Datetime: 11/03/2016 19:16 Stage of : Antepartum Datetime: 11/03/2016 19:00 Stage of : Antepartum Labor Evaluation Frequency: NONE Monitor Mode: External Resting Tone [employer]: Relaxed Pain Assessment Pain Scale: 0 Pain Presence: None/Denies Pain Goal: 3 Datetime: 11/03/2016 18:30 Stage of : Antepartum Datetime: 11/03/2016 17:30 Stage of : OB Triage Datetime: 11/03/2016 17:15 Stage of : OB Triage Datetime: 11/03/2016 16:04 Comments: PT REMOVED EFM Datetime: 11/03/2016 16:00 Stage of : OB Triage Maternal Assessment Level of Consciousness: Fully Conscious Headache: Denies Nausea/Vomiting: Denies RUQ Epigastric Pain: Denies Labor Evaluation Frequency: IRRIT Monitor Mode: External Duration (sec)2399: 5-10 Pattern: Normal: <= 5 Contractions in 10 Minutes Resting Tone [employer]: Relaxed Heart Rate FHR Baseline Rate: 140 Monitor Mode: External US Variability: Moderate 6-25 bpm Accelerations: 15X15 Decelerations: None Category: Category I Datetime: 11/03/2016 15:00 Stage of : OB Triage Maternal Assessment Level of Consciousness: Fully Conscious Headache: Denies Nausea/Vomiting: Denies RUQ Epigastric Pain: Denies Labor Evaluation Frequency: IRRIT Monitor Mode: External Duration (sec)2399: 5-10 Pattern: Normal: <= 5 Contractions in 10 Minutes Resting Tone [employer]: Relaxed Heart Rate FHR Baseline Rate: 140 Monitor Mode: External US Variability: Moderate 6-25 bpm Accelerations: 15X15 Decelerations: None Category: Category I Datetime: 11/03/2016 14:48 Vaginal Exam Dilatation (cms): 0.0 Effacement (%): 0 Station: -2 Exam By: LR RN Datetime: 11/03/2016 14:12 Assessment Type: Admission Assessment Maternal Assessment Level of Consciousness: Fully Conscious DTR's/Clonus: DTRs 2+; No Clonus Headache: Denies Blurred Vision: No Respiratory Effort: Unlabored; Regular Rhythm; Equal Expansion Breath Sounds, Left: Clear and Equal Breath Sounds, Right: Clear and Equal Nausea/Vomiting: Denies RUQ Epigastric Pain: Denies Lower Extremities Edema: None Degree: None Upper Extremities Edema: None Degree: None Facial Edema: None Fall Risk Assessment History of Falling: (0) No Secondary Diagnosis: (0) No Ambulatory Aid: (0) Bedrest/Nurse Assist IV Therapy: (0) No Gait: (0) Normal/Bedrest/Immobile Mental Status: (0) Oriented to Own Ability Fall Score: 0 Fall Risk Score Definition: No Risk: No action required Labor Evaluation Frequency: 0 Pattern: Normal: <= 5 Contractions in 10 Minutes Resting Tone [employer]: Relaxed Heart Rate FHR Baseline Rate: 140 Monitor Mode: External US Variability: Moderate 6-25 bpm Accelerations: 15X15 Decelerations: None Category: Category I Datetime: 11/03/2016 14:10 Time of Arrival: 11/03/2016 13:30 EGA: 34.4 Arrived By: Ambulatory Arrived From: Home Chief Complaint: LEAKING Movement: Present Contractions: Denies/Absent Rupture of Membranes: Unsure Vaginal Bleeding: None Vaginal Discharge: Present Recent Sexual Intercouse: Yes Abdominal Trauma: Not Applicable Patient Complaints: Other Initial Plan: NST, ROM+ Datetime: 08/29/2016 23:15 EGA: 25.1
== END 2016-11-28 17:50 | disposition home or self-care (01) ==
LOC: OBT 14:56 → L-D 14:58 → OBT 17:50
PROVIDERS: ATTEND Obstetrics & Gynecology
DX: O26.893 Other specified pregnancy related conditions, third trimester (principal); Z3A.38 38 weeks gestation of pregnancy; R19.7 Diarrhea, unspecified; R51 Headache
CPT/HCPCS: 76815; 76818; 80053; 81001; 85025; Z7500; G0463

== ENCOUNTER 2016-12-07 13:57 | Inpatient (IN) | payer MEDICAID ==
[~2016-12-07] VITALS: Ht 172.7 cm; Wt 135.2 kg
[~2016-12-07 13:57] MED LIST changes: +ANTIBIOT; -NPH10OT RIGHT EAR; +PRENAT PO
[2016-12-07 14:34] VITALS: Ht 172.7 cm; Wt 135.2 kg
[2016-12-07 14:35] VITALS: BP 130/62; PULSE 82; RESP 17
--- NOTE | 2016-12-07 16:41 | RADRPT ---
PROCEDURE: US OB. CLINICAL INDICATION: Decreased movement TECHNIQUE: Pelvic ultrasound performed for biophysical profile. COMPARISON: 11/28/2016 FINDINGS: Single intrauterine gestation present with heart rate at 161 beats per minute. Presentation is ceph alic. Placenta is fundal, grade II. Biophysical profile score is 8/8 (breathing=2, movement=2, ton e =2, fluid volume=2). Amniotic fluid volume is within normal limits, with TANI = 6.7 cm. RPTAT:HJJR IMPRESSION: 1. Biophysical profile score 8/8, unchanged from 11/28/2016. 2. Amniotic fluid index 6.7 cm, previously 15.4 cm on 11/28/2016. Physician Valeriano Date Time Electronically viewed and signed by Aamir Fraire Physician on 12/07/2016 16:41 JR/
--- NOTE | 2016-12-07 17:42 | HP ---
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 OB Admission Exam Vital Signs Vital Signs Vital Signs Date Time Temp Pulse Resp B/P Pulse Ox O2 Delivery O2 Flow Rate FiO2 12/07/16 14:35 98.9 82 17 130/62 Room Air Physical Exam HEENT: WNL Heart: Rhythm Normal Lungs: Clear, Equal Abdomen: WNL Extremities: Normal Reflexes: Normal Cervical Dilatation: Fingertip Effacement: 50% Station: -3 Membranes: Intact Heart Rate: 140's Accelerations: Accelerations Present Decelerations: No Decelerations Varibility: Marked Contractions on Admission: None OB Assessment/Plan Other Assessment: term gestation decreased amniotic fluid Induction Method: per Misoprostol Protocol ROXANN MCCONNELL MD Dec 07, 2016 17:42
--- NOTE | 2016-12-07 17:56 | TRIAGE ---
OB Triage Datetime Report Generated by CPN: 12/07/2016 17:56 Datetime: 12/07/2016 14:46 Pain Assessment Pain Scale: 7 Pain Presence: Intermittent Pain Type: Contraction; Pressure Pain Location: Abdomen Pain Relief Measures: Comfort Measures Datetime: 12/07/2016 14:38 Assessment Type: Admission Assessment Maternal Assessment Level of Consciousness: Fully Conscious DTR's/Clonus: DTRs 2+; No Clonus Headache: Denies Blurred Vision: No Respiratory Effort: Unlabored; Regular Rhythm; Equal Expansion Breath Sounds, Left: Clear and Equal Breath Sounds, Right: Clear and Equal Nausea/Vomiting: Denies RUQ Epigastric Pain: Denies Lower Extremities Edema: None Degree: None Upper Extremities Edema: None Degree: None Facial Edema: None Fall Risk Assessment History of Falling: (0) No Secondary Diagnosis: (0) No Ambulatory Aid: (0) Bedrest/Nurse Assist IV Therapy: (0) No Gait: (0) Normal/Bedrest/Immobile Mental Status: (0) Oriented to Own Ability Fall Score: 0 Fall Risk Score Definition: No Risk: No action required Datetime: 12/07/2016 14:37 Time of Arrival: 12/07/2016 13:53 EGA: 39.3 Arrived By: Ambulatory Arrived From: Dr. Rodarte Chief Complaint: SENT FROM CLINIC FOR DECREASED MOVEMENT. Movement: Decreased Contractions: Irregular Rupture of Membranes: Denies Vaginal Bleeding: None Vaginal Discharge: Denies Recent Sexual Intercouse: Yes Abdominal Trauma: Not Applicable Patient Complaints: None Time Provider Notified: 12/07/2016 14:50 Provider Notified: DR. WESLEY Initial Plan: TOCO/ US, BPP Datetime: 12/07/2016 14:14 Pain Presence: None/Denies Datetime: 11/28/2016 15:13 Fall Score: 0 Fall Risk Score Definition: No Risk: No action required Datetime: 11/05/2016 16:37 EGA: 38.1 Datetime: 11/05/2016 07:47 Fall Score: 20 Fall Risk Score Definition: No Risk: No action required Datetime: 11/04/2016 19:55 Fall Score: 20 Fall Risk Score Definition: No Risk: No action required Datetime: 11/03/2016 19:30 Fall Score: 0 Fall Risk Score Definition: No Risk: No action required Datetime: 11/03/2016 19:28 EGA: 34.4 Datetime: 11/03/2016 14:12 Fall Score: 0 Fall Risk Score Definition: No Risk: No action required Datetime: 11/03/2016 14:10 EGA: 34.4 Datetime: 08/29/2016 23:15 EGA: 25.1
[2016-12-07] MEDS ORDERED: DINOPROSTONE 10 MG VAG SUPP VAG ONE (18:30)
[2016-12-07] MEDS ORDERED: BUTORPHANOL 2 MG INJ IV PRN (18:30)
[2016-12-07] MEDS ORDERED: LACTATED RINGER'S 1,000 ML IV PRN (18:30)
[2016-12-07] MEDS ORDERED: IBUPROFEN 600 MG TAB PO PRN (18:30)
[2016-12-07] MEDS ORDERED: AMPICILLIN 2 GM/NS (PMX) 100 ML IV ONE (18:30)
[2016-12-07] MEDS ORDERED: OXYTOCIN 30 UNITS/LR 500 ML IV PRN (18:30)
[2016-12-07] MEDS ORDERED: METHYLERGONOVINE 0.2 MG INJ IM PRN (18:30)
[2016-12-07] MEDS ORDERED: LIDOCAINE 1% (MPF) 30 ML INJ INJ PRN (18:30)
[2016-12-07] MEDS ORDERED: CARBOPROST 250 MCG INJ IM PRN (18:30)
[2016-12-07] MEDS ORDERED: MISOPROSTOL 200 MCG TAB PR PRN (18:30)
[2016-12-07] MEDS ORDERED: OXYTOCIN 30 UNITS/LR 500 ML IV SCH (18:30)
[2016-12-07] MEDS: LACTATED RINGER'S 1,000 ML IV SCH (20:54)
[2016-12-07 21:02] LABS: ADD SCAN DIFF NO
[2016-12-07 21:04] LABS: BASOPHILS % 0.3 % (0.0-2.0); EOSINOPHILS # 0.1 10^3/ul (0.0-0.5); EOSINOPHILS % 0.4 % (0.0-7.0); HEMATOCRIT 34.2 % (37.0-47.0); HEMOGLOBIN 11.7 g/dl (12.0-16.0); LYMPHOCYTES # 2.4 10^3/ul (0.8-2.9); LYMPHOCYTES % 18.9 % (15.0-51.0); MEAN CORPUSCULAR HEMOGLOBIN 29.8 pg (29.0-33.0); MEAN CORPUSCULAR HGB CONC 34.2 g/dl (32.0-37.0); MEAN PLATELET VOLUME 10.4 fl (7.4-10.4); MONOCYTE # 0.9 10^3/ul (0.3-0.9); MONOCYTES % 6.8 % (0.0-11.0); NEUTROPHIL # 9.4 10^3/ul (1.6-7.5); NEUTROPHILS % 73.2 % (39.0-77.0); PLATELET COUNT 255 10^3/UL (140-415); RED BLOOD COUNT 3.93 10^6/ul (4.20-5.40); RED CELL DISTRIBUTION WIDTH 13.8 % (11.5-14.5); WHITE BLOOD COUNT 12.9 10^3/ul (4.8-10.8)
[2016-12-07 21:20] LABS: INR 0.9; PARTIAL THROMBOPLASTIN TIME 26.1 Sec (25.0-35.0); PROTIME 12.1 Sec (12.2-14.2); PT RATIO 0.9
[2016-12-07 23:45] LABS: BARBITURATES Negative (NEGATIVE); BENZODIAZEPINES Negative (NEGATIVE); CANNABINOIDS Negative (NEGATIVE); COCAINE Negative (NEGATIVE); OPIATES Negative (NEGATIVE)
[2016-12-08] MEDS: AMPICILLIN 1 GM/NS (PMX) 50 ML IV SCH ×4 (01:09→12:50)
[2016-12-08] MEDS: LACTATED RINGER'S 1,000 ML IV SCH ×3 (04:21→15:20)
[2016-12-08] MEDS ORDERED: FENTAnyl 2MCG/ML-ROPIV 0.2% 100 ML ONE (08:23)
[2016-12-08] MEDS ORDERED: FENTAnyl 2MCG/ML-ROPIV 0.2% 100 ML BAG EPI SCH (09:30)
[2016-12-08] MEDS ORDERED: NALOXONE (0.4 MG/ML) INJ IV PRN (09:30)
[2016-12-08] MEDS ORDERED: MINERAL OIL LIGHT 10 ML VIAL TOP PRN (12:00)
[2016-12-08] MEDS ORDERED: ACETAMINOPHEN 325 MG TAB PO ONE (14:00)
[2016-12-08] MEDS ORDERED: ONDANSETRON 4 MG INJ ONE (15:08)
[2016-12-08] MEDS ORDERED: ONDANSETRON 4 MG INJ IV STA (15:09)
[2016-12-08] MEDS: OXYTOCIN 30 UNITS/LR 500 ML IV SCH ×2 (16:38→17:53)
--- NOTE | 2016-12-08 16:45 | LDN ---
Date/Time of Note Date/Time of Note DATE: 12/08/16 TIME: 16:42 Delivery Summary of a viable infant over midline episiotomy Weeks of Gestation 39+ Placenta Delivered: Spontaneously, Intact & Complete Meconium: none Episiotomy: Yes Indication for episiotomy prolonged 2nd stage Perineal laceration: 0 Laceration repair: midline episitomy rachelle repaired in layers with 2 0 Vicryl and 2 0 Chromic Anesthesia type: Epidural Estimated blood loss: 300 Sponge & Needle done & correct: Yes All needle counts correct: Yes Any foreign bodies felt in the: No Problems: Delivery Information Sex Infant Sex: male Apgars 1 Minute: 9 5 Minute: 9 Suctioning Nose & mouth suctioned at [place]: Yes Delee suction performed: No Umbilical Cord Umbilical cord with: 3 Vessels Cord presentations: nuchal cord Nuchal cord present X: 1 Cord Blood was obtained: Yes Mother & Baby Disposition Disposition Mom & Baby to Maternity; Good: Yes (mother and baby were recovered in good condition ) Mom transferred to: Other (maternity ) Baby to NICU: No ROXANN MCCONNELL MD Dec 08, 2016 16:45
[2016-12-08 17:55] VITALS: BP 93/56; PULSE 63; RESP 18
[2016-12-08] MEDS ORDERED: METHYLERGONOVINE 0.2 MG INJ IM PRN (18:30)
[2016-12-08] MEDS ORDERED: ZOLPIDEM 5 MG TAB PO PRN (18:30)
[2016-12-08] MEDS ORDERED: OXYTOCIN 30 UNITS/LR 500 ML IV PRN (18:30)
[2016-12-08] MEDS ORDERED: BENZOCAINE 20% 56 ML SPRAY TOP PRN (18:30)
[2016-12-08] MEDS ORDERED: MISOPROSTOL 200 MCG TAB PR PRN (18:30)
[2016-12-08] MEDS ORDERED: LANOLIN 7 GM TUBE TOP PRN (18:30)
[2016-12-08] MEDS ORDERED: CARBOPROST 250 MCG INJ IM PRN (18:30)
[2016-12-08] MEDS ORDERED: ACETAMINOPHEN/CODEINE #3 TAB PO PRN (18:30)
[2016-12-08] MEDS ORDERED: WITCH HAZEL/GLYCERIN PAD PR PRN (18:30)
[2016-12-08] MEDS ORDERED: DIBUCAINE 1% 30 GM OINT PR PRN (18:30)
[2016-12-08] MEDS: CEPHALEXIN 500 MG CAP PO SCH (18:36)
[2016-12-08] MEDS: IBUPROFEN 600 MG TAB PO SCH (18:36)
[2016-12-08 19:45] VITALS: BP 93/50; PULSE 60; RESP 18
[2016-12-08] MEDS: SENNA/DOCUSATE NA (8.6MG/50MG) TAB PO SCH (21:00)
[2016-12-08] MEDS: MAGNESIUM HYDROXIDE 30ML CUP PO SCH (21:00)
[2016-12-08] MEDS: ACETAMINOPHEN/CODEINE #3 TAB PO PRN (21:20)
[2016-12-08] MEDS: LACTATED RINGER'S 1,000 ML IV* SCH (22:27)
[2016-12-09] MEDS: IBUPROFEN 600 MG TAB PO SCH ×5 (00:34→23:47)
[2016-12-09] MEDS: CEPHALEXIN 500 MG CAP PO SCH ×5 (00:35→23:47)
[2016-12-09] MEDS: LACTATED RINGER'S 1,000 ML IV* SCH ×2 (02:10→10:06)
[2016-12-09] MEDS: ACETAMINOPHEN/CODEINE #3 TAB PO PRN ×2 (05:42→20:17)
[2016-12-09 06:05] VITALS: BP 94/50; PULSE 64; RESP 18
[2016-12-09 07:37] LABS: ADD SCAN DIFF NO
[2016-12-09 07:43] LABS: BASOPHILS % 0.3 % (0.0-2.0); EOSINOPHILS % 0.3 % (0.0-7.0); HEMATOCRIT 30.9 % (37.0-47.0); LYMPHOCYTES # 2.5 10^3/ul (0.8-2.9); LYMPHOCYTES % 24.1 % (15.0-51.0); MEAN CORPUSCULAR HEMOGLOBIN 28.7 pg (29.0-33.0); MEAN CORPUSCULAR HGB CONC 32.4 g/dl (32.0-37.0); MEAN CORPUSCULAR VOLUME 88.5 fl (82.0-101.0); MEAN PLATELET VOLUME 10.4 fl (7.4-10.4); MONOCYTE # 0.7 10^3/ul (0.3-0.9); MONOCYTES % 6.8 % (0.0-11.0); NEUTROPHIL # 6.9 10^3/ul (1.6-7.5); PLATELET COUNT 206 10^3/UL (140-415); RED BLOOD COUNT 3.49 10^6/ul (4.20-5.40); RED CELL DISTRIBUTION WIDTH 14.1 % (11.5-14.5); WHITE BLOOD COUNT 10.2 10^3/ul (4.8-10.8)
[2016-12-09 08:00] VITALS: BP 97/52; PULSE 61; RESP 18
[2016-12-09] MEDS: MAGNESIUM HYDROXIDE 30ML CUP PO SCH ×2 (08:54→20:17)
[2016-12-09] MEDS: SENNA/DOCUSATE NA (8.6MG/50MG) TAB PO SCH ×2 (08:54→20:17)
[2016-12-09 16:00] VITALS: BP 101/55; PULSE 65; RESP 18
--- NOTE | 2016-12-09 17:15 | DS ---
Date/Time of Note Date/Time of Note Home next day DATE: 12/09/16 TIME: 17:14 Obstetrical Discharge Record Final Diagnosis Final Diagnosis: Term delivered Other Final Diagnosis Status post vaginal delivery Vaginal Delivery Obstetrical Delivery: Spontaneous, Episiotomy, Repaired Complications Augmentation: Yes Induction: Yes Condition on Discharge Physical Assessment Last Vitals: See nurse's notes Voiding: Yes Bowel Movement: Yes Breast: Soft, non-tender, Filling Fundus: Firm Abdomen and Incision: Soft bowel sounds are positive Fundus at umbilicus Episiotomy: Healing well Calf Tenderness: No Patient Condition: Good ROXANN MCCONNELL MD Dec 09, 2016 17:15
--- NOTE | 2016-12-09 17:16 | PD.PPDC ---
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
[2016-12-09] MEDS ORDERED: IBUP-1542 PO (17:17)
[2016-12-09 20:00] VITALS: BP 92/53; PULSE 68; RESP 18
[2016-12-10] MEDS: ACETAMINOPHEN/CODEINE #3 TAB PO PRN ×2 (02:25→06:17)
[2016-12-10 04:57] VITALS: BP 100/58; PULSE 62; RESP 18
[2016-12-10] MEDS: IBUPROFEN 600 MG TAB PO SCH ×2 (06:16→12:16)
[2016-12-10] MEDS: CEPHALEXIN 500 MG CAP PO SCH ×2 (06:17→12:16)
[2016-12-10 08:00] VITALS: BP 103/69; PULSE 71; RESP 18
[2016-12-10] MEDS ORDERED: MEASLES,MUMPS,RUBELLA VACCINE INJ SC* ONE (09:00)
[2016-12-10] MEDS ORDERED: DIPHTH/TET/ACEL PERTUSS (ADULT) 0.5 ML VIAL IM* ONE (09:00)
[2016-12-10] MEDS ORDERED: VARICELLA VACCINE LIVE/PF 1,350 UNIT/0.5 ML ML SC* ONE (09:00)
[2016-12-10] MEDS: SENNA/DOCUSATE NA (8.6MG/50MG) TAB PO SCH (09:45)
[2016-12-10] MEDS: MAGNESIUM HYDROXIDE 30ML CUP PO SCH (09:45)
[2016-12-10 12:00] VITALS: BP 130/77; PULSE 81; RESP 18
== END 2016-12-10 17:03 | disposition home or self-care (01) | DRG 775 ==
LOC: OBT 13:57 → L-D 13:57 → OBT 17:42 → L-D 17:42 → PP1 12-08 18:03
PROVIDERS: ADMIT Obstetrics & Gynecology; ATTEND Obstetrics & Gynecology
PROC: 10E0XZZ Delivery of Products of Conception, External Approach (ICD-10-PCS; principal; 2016-12-08)
PROC: 0W8NXZZ Division of Female Perineum, External Approach (ICD-10-PCS; 2016-12-08)
PROC: 3E033VJ Introduction of Other Hormone into Peripheral Vein, Percutaneous Approach (ICD-10-PCS; 2016-12-08)
DX: O69.81X0 Labor and delivery complicated by cord around neck, without compression, not applicable or unspecified (principal); Z37.0 Single live birth; Z3A.39 39 weeks gestation of pregnancy
CPT/HCPCS: 62319; 76818; 80307; 85025; 85610; 85730; 86592; 86703; 86762; 86900; 86901; 87340; 90715; 90716; G0463; J0290; J0595; J2405; J2590; J3010; J7120

== ENCOUNTER 2018-01-18 18:40 | Outpatient (CLI) | END 2018-01-18 22:25 | disposition home or self-care (01) ==

== ENCOUNTER 2018-02-08 20:23 | Outpatient (CLI) | END 2018-02-08 22:44 | disposition home or self-care (01) ==

== ENCOUNTER 2018-03-12 18:56 | Outpatient (CLI) | END 2018-03-13 | disposition home or self-care (01) ==

== ENCOUNTER 2018-05-01 00:30 | Inpatient (IN) | END 2018-05-01 18:55 | disposition home or self-care (01) | DRG 833 ==

== ENCOUNTER → 2018-05-03 | Outpatient (CLI) | END | disposition home or self-care (01) ==

== ENCOUNTER 2018-05-16 11:59 | Outpatient (CLI) | END 2018-05-16 15:05 | disposition home or self-care (01) ==

== ENCOUNTER 2018-05-21 21:15 | Outpatient (CLI) | END 2018-05-22 01:55 | disposition left against medical advice (07) ==

== ENCOUNTER 2018-06-03 18:19 | Outpatient (CLI) | payer MEDICAID ==
[~2018-06-03] VITALS: Ht 172.7 cm; Wt 169.7 kg
[~2018-06-03 18:19] MED LIST changes: +ACET325T33 PO; -ANTIBIOT
[2018-06-03 19:00] VITALS: BP 124/58; PULSE 82; RESP 16; Ht 172.7 cm; Wt 169.7 kg
--- NOTE | 2018-06-03 21:12 | PN ---
Triage Information Date/Time Jun 03, 2018 Reason for visit: Macrosomia Weeks of Gestation 38w 1d /Para 2/1 Hypertention: none Additional information Per Dr Donis, this pt has a LGA baby and is here for monitoring only and the EFW does not need to be repeated. 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 PSHx: None. POBHx: x 1. All: Ibuprofen. Objective Vital Signs Date Temp Pulse Resp B/P (MAP) Pulse Ox O2 O2 Flow FiO2 Time Delivery Rate 06/03/18 98.5 82 16 124/58 19:00 (80) Heart Rate: 130's Heart Rate Comments Accels to 160 bpm. No decels. Exam Deferred. Results/Medications Imaging Results BPP 8/8 with an TANI of 9.5 cm. VTX. Disposition: Discharge Assessment/Plan A: IUP at 38w 1d. macrosomia. Foe monitoring. P: D/C home and f/u with Dr Donis as scheduled . Labor precautions reviewed. KAVIN WIGGINS MD Jun 03, 2018 21:12
--- NOTE | 2018-06-03 21:52 | TRIAGE ---
OB Triage Datetime Report Generated by CPN: 06/03/2018 21:52 Datetime: 06/03/2018 20:16 Stage of : OB Triage Heart Rate FHR Baseline Rate: 130 FHR Baseline Changes: No Baseline Change Variability: Moderate 6-25 bpm Comments: Baby difficult to monitor d/t BMI 57 Datetime: 06/03/2018 19:16 Stage of : OB Triage Labor Evaluation Monitor Mode: External Quality: Mild Pattern: Normal: <= 5 Contractions in 10 Minutes Resting Tone Poca: Relaxed Heart Rate FHR Baseline Rate: 130 Monitor Mode: External US FHR Baseline Changes: No Baseline Change Variability: Moderate 6-25 bpm Accelerations: 15X15 Decelerations: None Category: Category I Pain Assessment Pain Scale: 1 Pain Presence: Intermittent Pain Type: Cramping Pain Location: Abdomen Datetime: 06/03/2018 19:03 Assessment Type: Triage Maternal Assessment Level of Consciousness: Fully Conscious Headache: Denies Blurred Vision: No Respiratory Effort: Unlabored; Regular Rhythm; Equal Expansion Nausea/Vomiting: Denies RUQ Epigastric Pain: Denies Lower Extremities Edema: MORBIDILY OBESE PT. 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) Facial Edema: None Fall Risk Assessment History of Falling: (0) No Secondary Diagnosis: (0) No Ambulatory Aid: (15) Crutches/Cane/Walker IV Therapy: (0) No Gait: (0) Normal/Bedrest/Immobile Mental Status: (0) Oriented to Own Ability Fall Score: 15 Fall Risk Score Definition: No Risk: No action required Datetime: 06/03/2018 19:01 Time of Arrival: 06/03/2018 18:16 EGA: 38.1 Arrived By: Ambulatory Arrived From: DrUrmila Office Chief Complaint: To ob triage from md office with referral form for nst and bpp due to macrosomia Movement: Present Contractions: Denies/Absent Rupture of Membranes: Denies Vaginal Discharge: Denies Recent Sexual Intercouse: Denies Abdominal Trauma: Not Applicable Patient Complaints: None Time Provider Notified: 06/03/2018 18:30 Provider Notified: Initial Plan: nst, bpp Datetime: 05/21/2018 21:35 Fall Score: 0 Fall Risk Score Definition: No Risk: No action required Datetime: 05/21/2018 21:25 EGA: 36.2 Datetime: 05/16/2018 12:25 Fall Score: 15 Fall Risk Score Definition: No Risk: No action required Datetime: 05/16/2018 12:22 EGA: 35.4 Datetime: 05/01/2018 07:34 Fall Score: 0 Fall Risk Score Definition: No Risk: No action required Datetime: 05/01/2018 03:19 Fall Score: 0 Fall Risk Score Definition: No Risk: No action required Datetime: 04/30/2018 21:07 EGA: 33.3 Datetime: 04/30/2018 19:26 Fall Score: 0 Fall Risk Score Definition: No Risk: No action required Datetime: 04/30/2018 19:20 EGA: 33.2 Datetime: 03/12/2018 19:20 Fall Score: 15 Fall Risk Score Definition: No Risk: No action required Datetime: 03/12/2018 19:00 EGA: 26.2 Datetime: 02/08/2018 20:45 Fall Score: 0 Fall Risk Score Definition: No Risk: No action required Datetime: 02/08/2018 20:25 EGA: 21.5 Datetime: 01/18/2018 19:01 EGA: 17.5 Fall Score: 0 Fall Risk Score Definition: No Risk: No action required
== END 2018-06-03 21:23 | disposition home or self-care (01) ==
LOC: OBT 18:19 → L-D 18:20 → OBT 21:23
PROVIDERS: ATTEND Obstetrics & Gynecology
DX: O36.63X0 Maternal care for excessive fetal growth, third trimester, not applicable or unspecified (principal); Z3A.38 38 weeks gestation of pregnancy
CPT/HCPCS: 76818; Z7500; G0463

== ENCOUNTER 2018-06-07 15:09 | Outpatient (CLI) | payer MEDICAID ==
--- NOTE | 2018-06-07 16:29 | TRIAGE ---
OB Triage Datetime Report Generated by CPN: 06/07/2018 16:29 Datetime: 06/07/2018 15:27 Stage of : OB Triage Assessment Type: Triage Time of Arrival: 06/07/2018 15:04 EGA: 38.5 Arrived By: Ambulatory Arrived From: Dr. Rodarte Chief Complaint: SENT FOR NST BPP FOR MACROSOMIA Movement: Present Contractions: Denies/Absent Rupture of Membranes: Denies Vaginal Bleeding: None Vaginal Discharge: Denies Recent Sexual Intercouse: Denies Abdominal Trauma: Not Applicable Patient Complaints: None Time Provider Notified: 06/07/2018 15:47 Provider Notified: DR. WESLEY Initial Plan: NST BP EFW Maternal Assessment Level of Consciousness: Fully Conscious DTR's/Clonus: DTRs 2+; No Clonus Headache: Denies Blurred Vision: No Respiratory Effort: Unlabored; Regular Rhythm; Equal Expansion Breath Sounds, Left: Clear and Equal Breath Sounds, Right: Clear and Equal Nausea/Vomiting: Denies RUQ Epigastric Pain: Denies Lower Extremities Edema: None Degree: None Upper Extremities Edema: None Degree: None Facial Edema: None Temperature Route: Oral Fall Risk Assessment History of Falling: (0) No Secondary Diagnosis: (0) No Ambulatory Aid: (0) Bedrest/Nurse Assist IV Therapy: (0) No Gait: (0) Normal/Bedrest/Immobile Mental Status: (0) Oriented to Own Ability Fall Score: 0 Fall Risk Score Definition: No Risk: No action required Labor Evaluation Monitor Mode: External Heart Rate Monitor Mode: External US Pain Assessment Pain Scale: 0 Pain Presence: None/Denies Pain Type: N/A Datetime: 06/03/2018 19:03 Fall Score: 15 Fall Risk Score Definition: No Risk: No action required Datetime: 06/03/2018 19:01 EGA: 38.1 Datetime: 05/21/2018 21:35 Fall Score: 0 Fall Risk Score Definition: No Risk: No action required Datetime: 05/21/2018 21:25 EGA: 36.2 Datetime: 05/16/2018 12:25 Fall Score: 15 Fall Risk Score Definition: No Risk: No action required Datetime: 05/16/2018 12:22 EGA: 35.4 Datetime: 05/01/2018 07:34 Fall Score: 0 Fall Risk Score Definition: No Risk: No action required Datetime: 05/01/2018 03:19 Fall Score: 0 Fall Risk Score Definition: No Risk: No action required Datetime: 04/30/2018 21:07 EGA: 33.3 Datetime: 04/30/2018 19:26 Fall Score: 0 Fall Risk Score Definition: No Risk: No action required Datetime: 04/30/2018 19:20 EGA: 33.2 Datetime: 03/12/2018 19:20 Fall Score: 15 Fall Risk Score Definition: No Risk: No action required Datetime: 03/12/2018 19:00 EGA: 26.2 Datetime: 02/08/2018 20:45 Fall Score: 0 Fall Risk Score Definition: No Risk: No action required Datetime: 02/08/2018 20:25 EGA: 21.5 Datetime: 01/18/2018 19:01 EGA: 17.5 Fall Score: 0 Fall Risk Score Definition: No Risk: No action required
--- NOTE | 2018-06-07 16:31 | PN ---
Triage Information Date/Time 06/07/1804/15/1628 Reason for visit: Polyhydramnios (r/o macrosomia) Weeks of Gestation 38w5d /Para Diabetes: none Hypertention: none Objective Heart Rate Comments CAT I tracing Contractions: None Results/Medications Imaging Results EFW 4039gm BPP 88 TANI 15.3 Disposition: Discharge Assessment/Plan A IUP 38w5d P discharge home with routine labor instructions RTH prn otherwise RTH for induction of labor on coming sunday MAXWELL MCCRAY MD Jun 07, 2018 16:31
== END 2018-06-07 16:29 | disposition home or self-care (01) ==
LOC: OBT 15:09 → L-D 15:10 → OBT 16:29
PROVIDERS: ATTEND Obstetrics & Gynecology
DX: O40.3XX0 Polyhydramnios, third trimester, not applicable or unspecified (principal); Z3A.38 38 weeks gestation of pregnancy
CPT/HCPCS: 76815; 76818; Z7500; G0463

== ENCOUNTER 2018-06-09 09:00 | Inpatient (IN) | payer MEDICAID ==
[~2018-06-09] VITALS: Ht 167.6 cm; Wt 170.0 kg
[2018-06-09 09:48] VITALS: Ht 167.6 cm; Wt 170.0 kg
[2018-06-09] MEDS ORDERED: METHYLERGONOVINE 0.2 MG INJ IM PRN (10:00)
[2018-06-09] MEDS ORDERED: MISOPROSTOL 200 MCG TAB PR PRN (10:00)
[2018-06-09] MEDS ORDERED: OXYTOCIN 30 UNITS/LR 500 ML IV SCH (10:00)
[2018-06-09] MEDS ORDERED: LIDOCAINE 1% (MPF) 30 ML INJ INJ PRN (10:00)
[2018-06-09] MEDS ORDERED: CARBOPROST 250 MCG INJ IM PRN (10:00)
[2018-06-09] MEDS ORDERED: OXYTOCIN 30 UNITS/LR 500 ML IV PRN (10:00)
[2018-06-09] MEDS: LACTATED RINGER'S 1,000 ML IV SCH ×4 (11:20→20:55)
[2018-06-09] MEDS: MISOPROSTOL 50 MCG CAPSULE PO SCH ×2 (11:21→15:32)
--- NOTE | 2018-06-09 20:50 | PREAC ---
Date/Time of Note Date/Time of Note DATE: 06/09/18 TIME: 20:49 Anesthesia Eval and Record Evaluation Time Pre-Procedure Interview DATE: 06/09/18 TIME: 20:49 Age 22 Sex female NPO: 8 hrs Preoperative diagnosis Planned procedure Labor Epidural Past Medical History Past Medical History: Includes GI: Morbid obesity Surgery & Anesthesia Issues No known issue Meds Anticoagulation: No Beta Zenon within 24 hr: No Reason Beta Zenon not given: Pt. not on B-Zenon Reported Medications Acetaminophen* (Tylenol*) 325 Mg Tablet, 325 MG PO Q4H PRN for PAIN AND OR ELEVATED TEMP, TAB 02/08/18 Multivit/Min/Fol Ac/Iron/Pren* ( S*) 1 Tab Tab, 1 TAB PO DAILY, TAB 11/28/16 Current Medications Lactated Ringer's 1,000 ml @ 125 mls/hr Q8H IV Last administered on 06/09/18at 15:32; Admin Dose 125 MLS/HR; Start 06/09/18 at 09:49 Lidocaine (Xylocaine 1% (Mpf)) 30 ml ONCE PRN INJ EPISIOTOMY; Start 06/09/18 at 10:00 Oxytocin/Lactated Ringer's 500 ml @ 500 mls/hr ONCE POST IV ; Start 06/09/18 at 10:00 Oxytocin/Lactated Ringer's 500 ml @ 125 mls/hr POST IV ; Start 06/09/18 at 10:00 Oxytocin/Lactated Ringer's 500 ml @ 0 mls/hr ONCE PRN IV VAGINAL BLEEDING; Start 06/09/18 at 10:00 Methylergonovine Maleate (Methergine) 0.2 mg ONCE PRN IM VAGINAL BLEEDING; Start 06/09/18 at 10:00 Carboprost Tromethamine (Hemabate) 250 mcg ONCE PRN IM VAGINAL BLEEDING; Start 06/09/18 at 10:00 Misoprostol (Cytotec) 1,000 mcg ONCE PRN MI VAGINAL BLEEDING; Start 06/09/18 at 10:00 Misoprostol (Cytotec 50 Mcg Capsule) 50 mcg Q4H PO Last administered on 06/09/18at 15:32; Admin Dose 50 MCG; Start 06/09/18 at 11:00 Meds reviewed: Yes Allergies Coded Allergies: ibuprofen (Verified Allergy, Severe, 05/21/18) Allergies Reviewed: Yes Labs/Studies Labs Reviewed: Reviewed by anesthesiologist Result Diagram: 06/09/18 0947 Laboratory Tests 06/09/18 09:47 Blood Bank Test 06/09/18 09:47 Antibody Screen NEGATIVE Blood Type A POSITIVE Rh Immune Globulin Candidate NO test: Positive Pre-procedure Exam Airway: Adequate mouth opening, Adequate thyromental dist Mallampati: Mallampati II Teeth: Normal Lung: Normal Heart: Normal ASA Physical Status ASA physical status: 2 Emergency: None Planned Anesthetic Neuraxial: Epidural Pre-operative Attestations Prior to commencing anesthesia and surgery, the patient was re-evaluated, there was verification of: *The patient's identity *The results of appropriate recent lab work and preoperative vital signs *The above evaluation not changing prior to induction *Anesthetic plan, risk benefits, alternative and complications discussed with patient/family; questions answered; patient/family understands, accepts and wishes to proceed. BRIANNE LUQUE Jun 09, 2018 20:50
[2018-06-09] MEDS ORDERED: ONDANSETRON 4 MG INJ IV PRN (21:00)
[2018-06-09] MEDS ORDERED: DIPHENHYDRAMINE 50 MG INJ IV PRN (21:00)
[2018-06-09] MEDS ORDERED: NALOXONE (0.4 MG/ML) INJ IV PRN (21:00)
[2018-06-09] MEDS ORDERED: FENTAnyl 2MCG/ML-ROPIV 0.2% 100 ML BAG EPI SCH (21:00)
[2018-06-09] MEDS ORDERED: HYDROmorphONE 0.5 MG/0.5 ML SYG IV PRN ×2 (21:00)
[2018-06-10] MEDS: LACTATED RINGER'S 1,000 ML IV SCH ×2 (01:37→08:18)
--- NOTE | 2018-06-10 02:16 | PAC ---
Date/Time of Note Date/Time of Note DATE: 06/10/18 TIME: 02:15 Post-Anesthesia Notes Post-Anesthesia Note Activity: WNL Respiratory function: WNL Cardiovascular function: WNL Mental status: Baseline Pain reasonably controlled: Yes Hydration appropriate: Yes Nausea/Vomiting absent: Yes BRIANNE LUQUE Jun 10, 2018 02:16
[2018-06-10] MEDS: MISOPROSTOL 50 MCG CAPSULE PO SCH ×3 (05:30→11:00)
[2018-06-10] MEDS ORDERED: OXYTOCIN 30 UNITS/LR 500 ML IV SCH (08:30)
[2018-06-10] MEDS ORDERED: ACETAMINOPHEN 500 MG TAB PO PRN (09:00)
[2018-06-10] MEDS ORDERED: MINERAL OIL LIGHT 10 ML VIAL TOP ONE (10:00)
[2018-06-10] MEDS ORDERED: FENTAnyl 2MCG/ML-ROPIV 0.2% 100 ML BAG EPI SCH (12:00)
[2018-06-10] MEDS ORDERED: NALOXONE (0.4 MG/ML) INJ IV PRN (12:00)
[2018-06-10] MEDS: OXYTOCIN 30 UNITS/LR 500 ML IV SCH ×2 (13:11→14:33)
--- NOTE | 2018-06-10 13:21 | HP ---
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 Blood Type: A+ Rubella: immune RPR/VDRL: Negative GBS Status: Negative HBsAG: Negative OB Admission Exam Physical Exam HEENT: WNL Heart: Rhythm Normal Lungs: Clear, Equal Abdomen: WNL Extremities: Normal Reflexes: Normal Cervical Dilatation: 1cm Effacement: 0% Station: -3 Membranes: Intact Heart Rate: 140's Accelerations: Accelerations Present Decelerations: No Decelerations Varibility: Marked Contractions on Admission: None Last 72 hours Lab Results CBC & BMP 06/09/18 09:47 OB Assessment/Plan Reason for admission: induction of labor Other Assessment: 39 weeks gestation Over 4000 g Other plan: Start induction using Cytotec ROXANN MCCONNELL MD Jun 10, 2018 13:21
--- NOTE | 2018-06-10 13:22 | LDN ---
Date/Time of Note Date/Time of Note DATE: 06/10/18 TIME: 13:21 Delivery Summary Normal spontaneous vaginal delivery of a viable over intact perineum Weeks of Gestation 39-week Placenta Delivered: Spontaneously, Intact & Complete Meconium: none Episiotomy: No Perineal laceration: 2 Laceration repair: Second-degree perineal laceration was repaired in layers using 2-0 Vicryl on the deeper layers and 2-0 chromic and superficially Anesthesia type: Epidural (And local) Estimated blood loss: 200 Sponge & Needle done & correct: Yes All needle counts correct: Yes Any foreign bodies felt in the: No Delivery Information Sex Infant Sex: male Apgars 1 Minute: 9 5 Minute: 9 Suctioning Nose & mouth suctioned at [place]: Yes Delee suction performed: No Umbilical Cord Umbilical cord with: 3 Vessels Cord presentations: no nuchal cord Cord Blood was obtained: Yes Mother & Baby Disposition Disposition Mom & Baby to Maternity; Good: Yes (Mother and baby were recovered in good condition) Mom transferred to: Other (Maternity) Baby to NICU: No ROXANN MCCONNELL MD Jun 10, 2018 13:22
[2018-06-10] MEDS ORDERED: ACETAMINOPHEN 1000MG/100ML IV 100 ML IVPB ONE (13:30)
[2018-06-10 15:25] VITALS: BP 120/69; PULSE 60; RESP 20
[2018-06-10] MEDS ORDERED: HYDROCODONE/APAP (5/325) TAB PO PRN (16:00)
[2018-06-10] MEDS ORDERED: METHYLERGONOVINE 0.2 MG INJ IM PRN (16:00)
[2018-06-10] MEDS: ACETAMINOPHEN 325 MG TAB PO SCH ×2 (16:00→22:00)
[2018-06-10] MEDS ORDERED: MISOPROSTOL 200 MCG TAB PR PRN (16:00)
[2018-06-10] MEDS ORDERED: LANOLIN HPA 1 PKT TOP PRN (16:00)
[2018-06-10] MEDS ORDERED: DIBUCAINE 1% 30 GM OINT TOP PRN (16:00)
[2018-06-10] MEDS ORDERED: ZOLPIDEM 5 MG TAB PO PRN (16:00)
[2018-06-10] MEDS ORDERED: CARBOPROST 250 MCG INJ IM PRN (16:00)
[2018-06-10] MEDS ORDERED: OXYTOCIN 30 UNITS/LR 500 ML IV PRN (16:00)
[2018-06-10] MEDS: WITCH HAZEL/GLYCERIN PAD PR PRN (16:29)
[2018-06-10] MEDS: BENZOCAINE 20% 56 ML SPRAY TOP PRN (16:29)
[2018-06-10] MEDS: CEPHALEXIN 500 MG CAP PO SCH ×2 (17:10→23:54)
[2018-06-10] MEDS: LACTATED RINGER'S 1,000 ML IV* SCH ×2 (18:34→23:45)
[2018-06-10 19:40] VITALS: BP 124/74; PULSE 69; RESP 20
[2018-06-10] MEDS: MAGNESIUM HYDROXIDE 30ML CUP PO SCH (21:15)
[2018-06-10] MEDS: SENNA/DOCUSATE NA (8.6MG/50MG) TAB PO SCH (21:15)
[2018-06-10] MEDS: HYDROCODONE/APAP (5/325) TAB PO PRN (23:04)
[2018-06-11 00:04] VITALS: BP 123/72; PULSE 75; RESP 20
[2018-06-11] MEDS: HYDROCODONE/APAP (5/325) TAB PO PRN ×2 (03:51→12:26)
[2018-06-11] MEDS: ACETAMINOPHEN 325 MG TAB PO SCH ×4 (04:00→22:00)
[2018-06-11 04:15] VITALS: BP 109/61; PULSE 67; RESP 20
[2018-06-11] MEDS: CEPHALEXIN 500 MG CAP PO SCH ×4 (06:10→23:24)
[2018-06-11 08:00] VITALS: BP 114/54; PULSE 86; RESP 20
[2018-06-11] MEDS: SENNA/DOCUSATE NA (8.6MG/50MG) TAB PO SCH ×2 (10:21→21:26)
[2018-06-11] MEDS: MAGNESIUM HYDROXIDE 30ML CUP PO SCH ×2 (10:22→21:26)
[2018-06-11] MEDS: BENZOCAINE 20% 56 ML SPRAY TOP PRN ×2 (10:43→23:12)
[2018-06-11] MEDS: WITCH HAZEL/GLYCERIN PAD PR PRN ×2 (10:44→23:12)
[2018-06-11 16:17] VITALS: BP 127/73; PULSE 66; RESP 18
[2018-06-11] MEDS ORDERED: VITAMIN A & D 5 GM OINT PACKET TOP ONE (17:17)
[2018-06-11] MEDS: ACET/BUTAL/CAFF TAB PO PRN ×2 (18:52→23:12)
--- NOTE | 2018-06-11 19:09 | DS ---
Date/Time of Note Date/Time of Note Home today or next day DATE: 06/11/18 TIME: 19:08 Obstetrical Discharge Record Final Diagnosis Final Diagnosis: Term delivered Other Final Diagnosis Status post vaginal delivery Vaginal Delivery Obstetrical Delivery: Spontaneous, Laceration, Repaired Complications Induction: Yes Condition on Discharge Physical Assessment Last Vitals: See nurse's notes Voiding: Yes Bowel Movement: Yes Breast: Soft, non-tender, Filling Fundus: Firm Abdomen and Incision: Abdomen is soft with firm fundus Episiotomy: Perineum is healing well and appears clean Calf Tenderness: No Patient Condition: Good ROXANN MCCONNELL MD Jun 11, 2018 19:09
[2018-06-11] MEDS ORDERED: ACET325T33 PO (19:12)
--- NOTE | 2018-06-11 19:12 | PD.PPDC ---
[employer] Discharge Instruction Provider Information Physician Information 22-year-old female had vaginal delivery Diagnosis [id number] Final Diagnosis: [id number] Status post vaginal delivery Condition [id number] Patient Condition: Hzepd0e Good Diet Bshpd8Yt Diet: Sfomo9y Resume Regular Diet Activity/Restrictions [id number] Activity: Neqqz1q Normal Activity May Shower [id number] Restrictions: Uzqtc2y Nothing in the Vagina [id number] Return to Work or School: [id number] Aug 12, 2018 Wound/Drain Care Instructions [id number] Wound/Drain Care Instructions: Fithg2l Keep clean and dry Follow-up Follow-up with Physician: 2, 3, Week/Weeks (In clinic ) Return to clinic for [id number] OB Instructions: Rwass2b Breast Tenderness Depression Comment: Pelvic rest for 6 weeks ROXANN MCCONNELL MD Jun 11, 2018 19:12
[2018-06-11 19:30] VITALS: BP 125/73; PULSE 75; RESP 19
[2018-06-12] MEDS: ACET/BUTAL/CAFF TAB PO PRN ×2 (03:24→09:17)
[2018-06-12] MEDS: ACETAMINOPHEN 325 MG TAB PO SCH ×3 (04:00→11:54)
[2018-06-12] MEDS: CEPHALEXIN 500 MG CAP PO SCH ×2 (06:12→11:54)
[2018-06-12 08:40] VITALS: BP 112/45; RESP 18
[2018-06-12] MEDS ORDERED: DIPHTH/TET/ACEL PERTUSS (ADULT) 0.5 ML VIAL IM* ONE (09:00)
[2018-06-12] MEDS ORDERED: VARICELLA VACCINE LIVE/PF 1,350 UNIT/0.5 ML ML SC* ONE (09:00)
[2018-06-12] MEDS ORDERED: MEASLES,MUMPS,RUBELLA VACCINE INJ SC* ONE (09:00)
[2018-06-12] MEDS: MAGNESIUM HYDROXIDE 30ML CUP PO SCH (09:17)
[2018-06-12] MEDS: SENNA/DOCUSATE NA (8.6MG/50MG) TAB PO SCH (09:17)
[2018-06-12] MEDS: WITCH HAZEL/GLYCERIN PAD PR PRN (12:29)
[2018-06-12] MEDS: BENZOCAINE 20% 56 ML SPRAY TOP PRN (12:29)
== END 2018-06-12 14:45 | disposition home or self-care (01) | DRG 807 ==
LOC: L-D 09:06 → PP1 06-10 15:05
PROVIDERS: ADMIT Obstetrics & Gynecology; ATTEND Obstetrics & Gynecology
PROC: 10E0XZZ Delivery of Products of Conception, External Approach (ICD-10-PCS; principal; 2018-06-10)
PROC: 0KQM0ZZ Repair Perineum Muscle, Open Approach (ICD-10-PCS; 2018-06-10)
DX: O99.214 Obesity complicating childbirth (principal); O36.63X0 Maternal care for excessive fetal growth, third trimester, not applicable or unspecified; E66.01 Morbid (severe) obesity due to excess calories; O70.1 Second degree perineal laceration during delivery; Z37.0 Single live birth; Z3A.39 39 weeks gestation of pregnancy
CPT/HCPCS: 62319; 85025; 85610; 85730; 86592; 86850; 86900; 86901; 90716; 99464; J0131; J2405; J2590; J3010; J7120

== ENCOUNTER → 2018-12-31 | Emergency (ER) | payer MEDICAID ==
[~2018-12-31] VITALS: Ht 170.2 cm; Wt 168.9 kg
[~2018-12-31] MED LIST changes: +BUTA1CAP38 PO; +DEXAMETHASONE 10 MG/ML 1 ML INJ IV ONE; +DIPHENHYDRAMINE 50 MG INJ IV STA; +ONDANSETRON 4 MG INJ IV STA; +SOD CHLORIDE 0.9% 1,000 ML IV STA
[2018-12-31 07:49] VITALS: BP 146/80; PULSE 79; RESP 18; Ht 170.2 cm; Wt 168.9 kg
--- NOTE | 2018-12-31 10:16 | ERD ---
ER Documentation Chief Complaint Chief Complaint headache x 4 days HPI 23-year-old female presenting with headache x4 days. Patient states is diffuse over the frontal lobe. She took Motrin 3 hours prior to evaluation with no improvement. No vomiting and no nausea. Mildly dizzy. Denies medical problems. Surgical history left hand surgery. Social history denies ROS All systems reviewed and are negative except as per history of present illness. Medications Home Meds Active Scripts Tcqupfgdjc-Spyfqnjdggtmj-Kgqxpumx* (Fioricet*) 50-300-40 Mg Capsule, 1 CAP PO Q4H PRN for HEADACHE, #30 CAP Prov:DIO HERNANDEZ PA-C 12/31/18 Acetaminophen* (Tylenol*) 325 Mg Tablet, 325 MG PO Q4H PRN for PAIN AND OR ELEVATED TEMP, #60 TAB 0 Refills Prov:ROXANN MCCONNELL MD 06/11/18 Reported Medications Multivit/Min/Fol Ac/Iron/Pren* ( S*) 1 Tab Tab, 1 TAB PO DAILY, TAB 11/28/16 Allergies Allergies: Coded Allergies: NSAIDS (Non-Steroidal Anti-Inflamma (Verified Allergy, Unknown, 12/31/18) PMhx/Soc History of Surgery: Yes (left 3 middle fingers ambuated) Anesthesia Reaction: No Hx Neurological Disorder: No Hx Respiratory Disorders: No Hx Cardiac Disorders: No Hx Psychiatric Problems: No Hx Miscellaneous Medical Probl: No Hx Alcohol Use: No Hx Substance Use: No Hx Tobacco Use: No Smoking Status: Never smoker FmHx Family History: No diabetes, No coronary disease, No other Physical Exam Vitals Vital Signs Date Temp Pulse Resp B/P (MAP) Pulse Ox O2 O2 Flow FiO2 Time Delivery Rate 12/31/18 98.2 79 18 146/80 97 07:49 (102) Physical Exam GENERAL: The patient is well-appearing, well-nourished, in no acute distress HEENT: Atraumatic. Conjunctivae are pink. Pupils equal, round, and reactive to light. There is no scleral icterus. Tympanic membranes clear bilaterally. Oropharynx clear. CHEST: Clear to auscultation bilaterally. There are no rales, wheezes or rhonchi. HEART: Regular rate and rhythm. No murmurs, clicks, rubs or gallops. ABDOMEN:Soft, nontender and nondistended. Good bowel sounds. No rebound or guarding. No gross peritonitis. No gross organomegaly or masses. EXTREMITIES: Equal pulses bilaterally. There is no peripheral clubbing, cyanosis or edema. No focal swelling or erythema. Full range of motion. Grossly neurovascularly intact. NEUROLOGIC: Alert and oriented. Cranial nerves II through XII intact. Motor strength in all 4 extremities with 5 out of 5 strength. Sensation grossly intact. Normal speech and gait. Babinski negative. Results 24 hrs Laboratory Tests Test 12/31/18 08:13 12/31/18 08:22 Urine Color STRAW Urine Clarity CLEAR Urine pH 5.0 Urine Specific [place] 1.015 Urine Ketones NEGATIVE mg/dL Urine Nitrite NEGATIVE mg/dL Urine Bilirubin NEGATIVE mg/dL Urine Urobilinogen NEGATIVE mg/dL Urine Leukocyte Esterase 1+ Raza/ul Urine Microscopic RBC 1 /HPF Urine Microscopic WBC 3 /HPF Urine Squamous Epithelial Cells FEW /HPF Urine Mucus FEW /HPF Urine Hemoglobin NEGATIVE mg/dL Urine Glucose NEGATIVE mg/dL Urine Total Protein NEGATIVE mg/dl POC Beta HCG, Qualitative NEGATIVE Current Medications Medications Dose Sig/Vania Start Time Status Last (Trade) Ordered Route PRN Stop Time Admin Dose Reason Admin Sodium 1,000 ml @ Q1H STAT 12/31/18 DC 12/31/18 Chloride 1,000 mls/hr IV 08:09 12/31/18 08:23 09:08 Ondansetron 4 mg ONCE STAT 12/31/18 DC 12/31/18 HCl (Zofran IV 08:09 12/31/18 08:23 Inj) 08:10 25 mg ONCE STAT 12/31/18 DC 12/31/18 Diphenhydrami IV 08:09 12/31/18 08:23 ne HCl 08:10 (Benadryl) 10 mg ONCE ONCE 12/31/18 DC 12/31/18 Dexamethasone IV 08:30 12/31/18 08:23 (Decadron) 08:31 Procedures/MDM ER course: 1 L normal saline with Zofran and Toradol and Decadron given in ED. Upon reevaluation patient stated her symptoms are improving. MDM: 23-year-old female presenting with headache x4 days. I have low suspicion for intracranial hemorrhage or neuro deficit. I have low suspicion for meningitis or sepsis. I have low suspicion for eclampsia or other complications. Patient is discharged with strict ER precautions and told to follow-up with primary care. Patient symptoms resolved on the ER. Patient is told symptoms change or worsen to return immediately to the ER. All questions answered at discharge Departure Diagnosis: Primary Impression: Headache Condition: Stable Patient Instructions: Self-Care for Headaches Referrals: COMMUNITY CLINICS YOU HAVE RECEIVED A MEDICAL SCREENING EXAM AND THE RESULTS INDICATE THAT YOU DO NOT HAVE A CONDITION THAT REQUIRES URGENT TREATMENT IN THE EMERGENCY DEPARTMENT. FURTHER EVALUATION AND TREATMENT OF YOUR CONDITION CAN WAIT UNTIL YOU ARE SEEN IN YOUR DOCTORS OFFICE WITHIN THE NEXT 1-2 DAYS. IT IS YOUR RESPONSIBILITY TO MAKE AN APPOINTMENT FOR FOLOW-UP CARE. IF YOU HAVE A PRIMARY DOCTOR --you should call your primary doctor and schedule an appointment IF YOU DO NOT HAVE A PRIMARY DOCTOR YOU CAN CALL OUR PHYSICIAN REFERRAL HOTLINE AT IF YOU CAN NOT AFFORD TO SEE A PHYSICIAN YOU CAN CHOSE FROM THE FOLLOWING [facility] [address]. [facility] [address] [facility] [address] [facility] [address] [facility] [address] [facility] [facility]. [address] Additional Instructions: FOLLOW UP WITH YOUR PRIMARY CARE PHYSICIAN TOMORROW.Return to this facility if you are not improving as expected. DIO HERNANDEZ PA-C Dec 31, 2018 10:16
== END | disposition home or self-care (01) ==
LOC: FTE 07:45
DX: R51 Headache (principal)
CPT/HCPCS: 81001; 81025; 96361; 96374; 96375; J1100; J1200; J2405; J7030; Z7502

== ENCOUNTER 2019-02-19 13:35 | Emergency (ER) | payer MEDICAID ==
[~2019-02-19] VITALS: Ht 177.8 cm; Wt 175.1 kg
[~2019-02-19 13:35] MED LIST changes: +ACET500C5 PO; +ALBU18HF INHALATION; -DEXAMETHASONE 10 MG/ML 1 ML INJ IV ONE; -DIPHENHYDRAMINE 50 MG INJ IV STA; +HYDR-4011 PO; +MEDR10TA9 PO; -ONDANSETRON 4 MG INJ IV STA; -SOD CHLORIDE 0.9% 1,000 ML IV STA
[2019-02-19 13:50] VITALS: BP 161/83; PULSE 84; RESP 20; Ht 177.8 cm; Wt 175.1 kg
[2019-02-19] MEDS ORDERED: ACETAMINOPHEN 325 MG TAB PO ONE (16:00)
== END 2019-02-19 16:00 | disposition home or self-care (01) ==
LOC: FTE 13:35
DX: R51 Headache (principal)
CPT/HCPCS: Z7502; Z7610; 99282

== ENCOUNTER 2019-03-12 19:56 | Emergency (ER) | payer MEDICAID ==
[~2019-03-12] VITALS: Ht 172.7 cm; Wt 149.0 kg
[~2019-03-12 19:56] MED LIST changes: -ALBU18HF INHALATION
[2019-03-12 20:10] VITALS: Ht 172.7 cm; Wt 149.0 kg
[2019-03-12] MEDS ORDERED: HYDROCODONE/APAP (10/325) TAB PO ONE (22:30)
== END 2019-03-12 23:50 | disposition home or self-care (01) ==
LOC: FTE 19:56
DX: S89.91XA Unspecified injury of right lower leg, initial encounter (principal); W01.0XXA Fall on same level from slipping, tripping and stumbling without subsequent striking against object, initial encounter; Y92.9 Unspecified place or not applicable
CPT/HCPCS: 73562; Z7610

== ENCOUNTER 2019-04-03 15:59 | Emergency (ER) | payer MEDICAID ==
[~2019-04-03] VITALS: Ht 172.7 cm; Wt 158.0 kg
[2019-04-03 16:10] VITALS: BP 116/65; PULSE 82; RESP 18; Ht 172.7 cm; Wt 158.0 kg
== END 2019-04-03 19:15 | disposition home or self-care (01) ==
LOC: FTE 15:59
DX: N93.9 Abnormal uterine and vaginal bleeding, unspecified (principal)
CPT/HCPCS: 36415; 76830; 76856; 81025; 85025; 86850; 86900; 86901; Z7502